=== PATIENT | male | born 1975 | race Caucasian/White ===

== ENCOUNTER 2017-02-19 01:37 | Emergency (ER) | payer MEDICAID ==
--- NOTE | 2017-02-19 02:16 | C.PDOC ---
History Of Present Illness patient states he feels anxious and has had some palpitations . He just had his thyroid medication increased from 50 to 75 mcg. Pt refuses to be examined or have blood work, because he feels better. wants to think about being examined Time Seen by Provider: 02/19/17 02:14 Chief Complaint (Nursing): Palpitations Past Medical History Vital Signs: Last Vital Signs Temp 97.8 F 02/19/17 01:52 Pulse 73 02/19/17 01:52 Resp 14 02/19/17 01:52 BP 115/36 L 02/19/17 01:52 Pulse Ox 100 02/19/17 02:16 - Medical History PMH: Anxiety, Back Problems, Depression, Hyperthyroidism, Hypothyroidism Denies: Diabetes, Hepatitis, HIV, HTN, Seizures, Sexually Transmitted Disease Family History: States: Unknown Family Hx - Social History Hx Tobacco Use: Yes Hx Alcohol Use: No Hx Substance Use: Yes - Immunization History Hx Tetanus Toxoid Vaccination: No Hx Influenza Vaccination: No Hx Pneumococcal Vaccination: No ED Course And Treatment ECG: Interpreted By Me, Viewed By Me ECG Rhythm: Sinus Rhythm, Nonspecific Changes O2 Sat by Pulse Oximetry: 100 Pulse Ox Interpretation: Normal Progress Note: went to see the patient , and see if he would allow me to examine him, but pt had eloped Disposition Counseled Patient/Family Regarding: Studies Performed, Diagnosis - Disposition Disposition: ELOPEMENT - ER ONLY Disposition Time: 02:15 Condition: UNKNOWN - Clinical Impression Clinical Impression: Palpitations
[2017-02-19 02:19] VITALS: BP 115/36; PULSE 73; RESP 14; TEMP 97.8; O2SAT 100
--- NOTE | 2017-02-24 13:32 | CARD ---
APPROVED REPORT EKG Measurement Heart [id number] <Conclusion> Accelerated Junctional rhythm Low voltage QRS Nonspecific T wave abnormality Abnormal ECG
== END 2017-02-19 01:56 | disposition left against medical advice (07) ==
LOC: C.ER 01:37
DX: R00.2 Palpitations (principal)

== ENCOUNTER 2017-03-09 13:30 | Emergency (ER) | payer MEDICAID ==
[2017-03-09 13:45] VITALS: BMI 22.4
--- NOTE | 2017-03-09 14:45 | C.PDOC ---
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 Patient states it was initially swollen, which went down. Taking Ibuprofen at home w/ transient relief. Pain worsens w movement. No numbness, tingling or weakness. Time Seen by Provider: 03/09/17 14:05 Chief Complaint (Nursing): Upper Extremity Problem/Injury History Per: Patient History/Exam Limitations: no limitations Onset/Duration Of Symptoms: Days Current Symptoms Are (Timing): Still Present Past Medical History Reviewed: Historical Data, Nursing Documentation, Vital Signs Vital Signs: Last Vital Signs Temp 97.4 F L 03/09/17 14:56 Pulse 60 03/09/17 14:56 Resp 16 03/09/17 14:56 BP 115/75 03/09/17 14:56 Pulse Ox 97 03/09/17 19:15 - Medical History PMH: Anxiety, Back Problems, Depression, Hyperthyroidism, Hypothyroidism Denies: Diabetes, Hepatitis, HIV, HTN, Seizures, Sexually Transmitted Disease Family History: States: Unknown Family Hx - Social History Hx Tobacco Use: Yes Hx Alcohol Use: No Hx Substance Use: Yes - Immunization History Hx Tetanus Toxoid Vaccination: No Hx Influenza Vaccination: No Hx Pneumococcal Vaccination: No Review Of Systems Except As Marked, All Systems Reviewed And Found Negative. Constitutional: Negative for: Fever, Chills Gastrointestinal: Negative for: Vomiting Musculoskeletal: Positive for: Arm Pain (left) Skin: Negative for: Rash Neurological: Negative for: Weakness, Numbness Physical Exam - Physical Exam Appears: Non-toxic, No Acute Distress Eye(s): bilateral: Normal Inspection, PERRL Extremity: Capillary Refill (<2 seconds), No Deformity, No Swelling, Other ( tenderness to palpation of left distal forearm along radius, from at wrist and elbow, radial pulses +2) Neurological/Psych: Oriented x3, Normal Speech, Normal Cognition ED Course And Treatment O2 Sat by Pulse Oximetry: 97 - Other Rad left forearm X-Ray: Interpreted by Me Interpretation: no fracture seen Disposition Counseled Patient/Family Regarding: Diagnosis, Need For Followup - Disposition Referrals: Arturo Leigh III, MD [Staff Provider] - Disposition: HOME/ ROUTINE Disposition Time: 14:42 Condition: STABLE Additional Instructions: Take Ibuprofen 600 mg by mouth every 6 hours (with food) for pain. Avoid strenuous use of left arm. Follow up with Orthopedics next week if pain persists. Forms: General Discharge Instructions, Work Excuse - Clinical Impression Clinical Impression: Tendonitis - Scribe Statement The provider has reviewed the documentation as recorded by the Toneibkirk Franks All medical record entries made by the Toneibkirk were at my direction and personally dictated by me. I have reviewed the chart and agree that the record accurately reflects my personal performance of the history, physical exam, medical decision making, and the department course for this patient. I have also personally directed, reviewed, and agree with the discharge instructions and disposition.
[2017-03-09 14:57] VITALS: BP 115/75; PULSE 60; RESP 16; TEMP 97.4
--- NOTE | 2017-03-09 14:57 | RAD ---
Left forearm History: Distal radial pain. Comparison: None. Findings: Two views of the left forearm demonstrate no evidence acute fracture or dislocation. Impression: No evidence of acute fracture or dislocation.
[2017-03-09 18:33] VITALS: O2SAT 97
== END 2017-03-09 14:57 | disposition home or self-care (01) ==
LOC: C.ER 13:30
DX: M77.9 Enthesopathy, unspecified (principal)

== ENCOUNTER 2017-04-09 23:11 | Emergency (ER) | payer MEDICAID ==
[2017-04-09 23:12] VITALS: BMI 22.4
[2017-04-09 23:42] VITALS: BP 107/71; PULSE 96; RESP 20; TEMP 97.4; O2SAT 97
--- NOTE | 2017-04-09 23:45 | C.PDOC ---
History Of Present Illness went to see the pt, but pt had eloped. Time Seen by Provider: 04/09/17 23:45 Chief Complaint (Nursing): Chest Pain Past Medical History Vital Signs: Last Vital Signs Temp 97.4 F L 04/09/17 23:37 Pulse 96 H 04/09/17 23:37 Resp 20 04/09/17 23:37 BP 107/71 04/09/17 23:37 Pulse Ox 97 04/09/17 23:45 - Medical History PMH: Anxiety, Back Problems, Depression, Hyperthyroidism, Hypothyroidism Denies: Diabetes, Hepatitis, HIV, HTN, Seizures, Sexually Transmitted Disease Family History: States: Unknown Family Hx - Social History Hx Tobacco Use: Yes Hx Alcohol Use: No Hx Substance Use: Yes - Immunization History Hx Tetanus Toxoid Vaccination: No Hx Influenza Vaccination: No Hx Pneumococcal Vaccination: No ED Course And Treatment ECG: Interpreted By Me, Viewed By Me ECG Rhythm: Sinus Rhythm (83), 1st Degree HB, Nonspecific Changes O2 Sat by Pulse Oximetry: 97 Pulse Ox Interpretation: Normal - Radiology CXR: Interpreted by Me, Viewed By Me CXR Interpretation: No: Infiltrates, Fracture, Pnemothorax Disposition Counseled Patient/Family Regarding: Studies Performed, Diagnosis - Disposition Disposition: LEFT W/O BEING SEEN - ER ONLY Disposition Time: 23:45 Condition: UNKNOWN - Clinical Impression Clinical Impression: Chest discomfort
== END 2017-04-09 23:45 | disposition left against medical advice (07) ==
LOC: C.ER 23:11
DX: Z02.89 Encounter for other administrative examinations (principal); R07.89 Other chest pain

== ENCOUNTER 2017-04-18 01:17 | Inpatient (IN) | payer MEDICAID ==
[2017-04-18 01:17] VITALS: BMI 22.4
--- NOTE | 2017-04-18 02:52 | C.PDOC ---
History Of Present Illness <Cristel Coates - Last Filed: 04/18/17 02:50> <SalvadorshinShell - Last Filed: 04/18/17 03:13> 41 y/o male with a Hx of thyroid disease, multiple drug abuse, and depression, presents to the ER expressing depression and suicidal ideation [employer]. Pt notes not taking his antidepressants 9 months ago. Pt has suicidal plan but denies any physical complaints at this time. (Shell Velazquez) <Cristel Coates - Last Filed: 04/18/17 02:50> History Per: Patient History/Exam Limitations: no limitations Onset/Duration Of Symptoms: Hrs Current Symptoms Are (Timing): Still Present Suicide/Self Injury Attempted (Context): None Severity: Mild Associated Symptoms: Suicidal Thoughts, Suicidal Plan Involuntary Hold By: None Recent travel outside of the [place]: No Additional History Per: Patient <CarolineShell - Last Filed: 04/18/17 03:13> Time Seen by Provider: 04/18/17 01:41 Chief Complaint (Nursing): Psychiatric Evaluation Past Medical History - Medical History PMH: Anxiety, Back Problems, Depression, Hyperthyroidism, Hypothyroidism Denies: Diabetes, Hepatitis, HIV, HTN, Seizures, Sexually Transmitted Disease Family History: States: Unknown Family Hx - Social History Hx Tobacco Use: Yes Hx Alcohol Use: No Hx Substance Use: Yes - Immunization History Hx Tetanus Toxoid Vaccination: No Hx Influenza Vaccination: No Hx Pneumococcal Vaccination: No <Cristel Coates - Last Filed: 04/18/17 02:50> Reviewed: Historical Data, Nursing Documentation, Vital Signs - Medical History PMH: Anxiety, Back Problems, Depression, Hyperthyroidism, Hypothyroidism Family History: States: Unknown Family Hx - Social History Hx Tobacco Use: Yes Hx Alcohol Use: No Hx Substance Use: Yes - Immunization History Hx Tetanus Toxoid Vaccination: No Hx Influenza Vaccination: No Hx Pneumococcal Vaccination: No <CarolineShell - Last Filed: 04/18/17 03:13> Vital Signs: Last Vital Signs Temp 97.6 F 04/18/17 01:28 Pulse 80 04/18/17 01:28 Resp 14 04/18/17 01:28 BP 120/70 04/18/17 01:28 Pulse Ox 97 04/18/17 02:51 ED Course And Treatment ECG: Interpreted By Me, Viewed By Me ECG Rhythm: Sinus Rhythm (60), 1st Degree HB, Nonspecific Changes O2 Sat by Pulse Oximetry: 97 Pulse Ox Interpretation: Normal <Cristel Coates - Last Filed: 04/18/17 02:50>
[2017-04-18 03:14] LABS: BASO # 0.1 K/uL (0.0-0.2); BASO % 0.9 % (0.0-2.0); EOS # 0.2 K/uL (0.0-0.7); EOS % 2.5 % (0.0-4.0); HEMATOCRIT 39.2 % (35.0-51.0); LYMPH # 1.9 K/uL (1.0-4.3); LYMPH % 20.6 % (20.0-40.0); MEAN CELL VOLUME 93.5 fL (80.0-94.0); MEAN CORPUSCULAR HGB CONC 34.3 g/dL (33.0-37.0); MEAN PLATELET VOLUME 7.4 fL (7.2-11.7); MONO # 0.9 K/uL (0.0-0.8); MONO % 9.3 % (0.0-10.0); NRBC % 0.1 % (0.0-2.0); RED CELL DISTRIBUTION WIDTH 12.9 % (11.5-14.5); WHITE BLOOD COUNT 9.4 K/uL (4.8-10.8)
--- NOTE | 2017-04-18 03:18 | C.PDOC ---
History Of Present Illness <Shell Velazquez - Last Filed: 04/18/17 06:56> <Marielle Barnard - Last Filed: 04/18/17 07:35> 41 y/o male with a Hx of thyroid disease, multiple drug abuse, and depression, presents to the ER expressing depression with suicidal ideation gradually developed for past week. Pt notes not taking his antidepressants and thyroid medication " at least for 9 months ago". Pt has suicidal plan. Admits many stressor, drug abuse that worse depression sx. At present time, pt appears AAO#3 , appropriate, denies any active physical complaints at this time. (Shell Velazquez) History Per: Patient History/Exam Limitations: no limitations Onset/Duration Of Symptoms: Hrs Current Symptoms Are (Timing): Still Present Suicide/Self Injury Attempted (Context): None Severity: Mild Associated Symptoms: Suicidal Thoughts, Suicidal Plan Involuntary Hold By: None Recent travel outside of the [place]: No Additional History Per: Patient <Shell Velazquez - Last Filed: 04/18/17 06:56> <Marielle Barnard - Last Filed: 04/18/17 07:35> Time Seen by Provider: 04/18/17 01:41 Chief Complaint (Nursing): Psychiatric Evaluation Past Medical History Reviewed: Historical Data, Nursing Documentation, Vital Signs - Medical History PMH: Anxiety, Back Problems, Depression, Hyperthyroidism, Hypothyroidism Denies: Diabetes, Hepatitis, HIV, HTN, Seizures, Sexually Transmitted Disease Family History: States: Unknown Family Hx - Social History Hx Tobacco Use: Yes Hx Alcohol Use: No Hx Substance Use: Yes - Immunization History Hx Tetanus Toxoid Vaccination: No Hx Influenza Vaccination: No Hx Pneumococcal Vaccination: No <Shell Velazquez - Last Filed: 04/18/17 06:56> Review Of Systems Except As Marked, All Systems Reviewed And Found Negative. Psych: Positive for: Depression, Suicidal ideation <Shell Velazquez - Last Filed: 04/18/17 06:56> Physical Exam - Physical Exam Appears: Non-toxic, No Acute Distress Skin: Warm, Dry Head: Atraumatic, Normacephalic Eye(s): bilateral: PERRL Nose: No Discharge Oral Mucosa: Moist, No Drooling Tongue: Normal Appearing Lips: Normal Appearing Throat: Normal Neck: Supple Chest: Symmetrical Cardiovascular: Rhythm Regular, No Friction Rub, No JVD Respiratory: No Rales, No Rhonchi, No Stridor, No Wheezing Gastrointestinal/Abdominal: Soft, No Tenderness, No Distention, No Guarding Back: No CVA Tenderness Extremity: Normal ROM, No Pedal Edema Neurological/Psych: Oriented x3, Normal Speech, Other (No focal deficit) Gait: Steady <Shell Velazquez - Last Filed: 04/18/17 06:56> ED Course And Treatment - Laboratory Results Result Diagrams: 04/18/17 03:09 04/18/17 03:09 ECG: Interpreted By Me, Viewed By Me ECG Rhythm: Sinus Rhythm ECG Interpretation: Normal Interpretation Of ECG: SR@60/min, NAD, 1st degree AVB, no acute T wave or ST-T changes. O2 Sat by Pulse Oximetry: 97 (RA) Pulse Ox Interpretation: Normal - Radiology CXR: Interpreted by Me, Viewed By Me CXR Interpretation: Yes: Cardiomegaly. No: Infiltrates Progress Note: Impression: 41 y/o male c/o depression and suicidal ideation today. Plans: EKG, Blood labs, CXR. Pt was OBS in ED for 5 hours. Diagnostics review, appears noraml except TSH- hyperthyroidism. Pt has Hx of hypothyroidism, non-compliant with medictaion. UA sample still pending. At 6: 30, UDS review (+) opiates. PT IS MEDICALLY CLEARED FOR PES EVALUATION AND FURTHER PSYCHIATRIC EVALUATION/TREATMENT/TRANSFER NEED. <Shell Velazquez - Last Filed: 04/18/17 06:56> - Laboratory Results Result Diagrams: 04/18/17 03:09 04/18/17 03:09 <Marielle Barnard - Last Filed: 04/18/17 07:35> Medical Decision Making <Shell Velazquez - Last Filed: 04/18/17 06:56> <Marielle Barnard - Last Filed: 04/18/17 07:35> Medical Decision Making: Receiving Sign Out 07:00 Patient signed out to me by Shell Velazquez (DARSHAN). Pending disposition 07:20 Case discussed w/ addiction social worker, Senait; States that patient is being admitted to under Dr Armendariz's service for depression. (Marielle Barnard) Disposition - Disposition Disposition Time: 07:00 <Shell Velazquez - Last Filed: 04/18/17 06:56> <Marielle Barnard - Last Filed: 04/18/17 07:35> - Disposition Condition: STABLE - Clinical Impression Clinical Impression: Depression - Scribe Statement The provider has reviewed the documentation as recorded by the Scribe <Shell Velazquez - Last Filed: 04/18/17 06:56> <Marielle Barnard - Last Filed: 04/18/17 07:35> - Scribe Statement José Miguel eastman All medical record entries made by the Scribe were at my direction and personally dictated by me. I have reviewed the chart and agree that the record accurately reflects my personal performance of the history, physical exam, medical decision making, and the department course for this patient. I have also personally directed, reviewed, and agree with the discharge instructions and disposition. (Shell Velazquez)
[2017-04-18 03:23] LABS: CHLORIDE 100 mmol/L (98-107); SODIUM 140 mmol/L (132-148)
[2017-04-18 03:24] LABS: POTASSIUM 3.6 mmol/L (3.6-5.2)
[2017-04-18 03:25] LABS: GFR AFRICAN-AMERICAN > 60
[2017-04-18 03:26] LABS: ALB/GLOB RATIO 1.3 (1.0-2.1); ALKALINE PHOSPHATASE 60 U/L (38-126); ALT/SGPT 19 U/L (21-72); AST/SGOT 32 U/L (17-59); BILIRUBIN,TOTAL 0.7 mg/dL (0.2-1.3); BLOOD UREA NITROGEN 14 mg/dL (9-20); CALCIUM 8.9 mg/dl (8.6-10.4); CARBON DIOXIDE 27 mmol/L (22-30); GLUCOSE,RANDOM 84 mg/dL (75-110); TOTAL PROTEIN 7.7 g/dL (6.3-8.3)
[2017-04-18 03:27] LABS: ALCOHOL SERUM < 10 mg/dl (0-10)
[2017-04-18 06:54] LABS: URINE BILIRUBIN NEGATIVE (NEGATIVE); URINE BLOOD NEGATIVE (NEGATIVE); URINE COLOR Yellow (YELLOW); URINE GLUCOSE (UA) NORMAL (Normal); URINE KETONE NEGATIVE (NEGATIVE); URINE LEUKOCYTE ESTERASE NEG Leu/uL (Negative); URINE PROTEIN NEGATIVE (NEGATIVE); URINE UROBILINOGEN NORMAL mg/dL (0.2-1.0); WBC URINE < 1 /hpf (0-5)
[2017-04-18 07:07] VITALS: RESP 18
[2017-04-18 09:08] VITALS: O2SAT 99
--- NOTE | 2017-04-18 11:01 | RAD ---
HISTORY: Screening. Portable study 03:05. COMPARISON: 01/10/2015. FINDINGS: LUNGS: No active pulmonary disease. PLEURA: No significant pleural effusion identified, no pneumothorax apparent. CARDIOVASCULAR: Normal. OSSEOUS STRUCTURES: No significant abnormalities. VISUALIZED UPPER ABDOMEN: Normal. OTHER FINDINGS: None. IMPRESSION: No active disease. No significant interval change compared to the prior examination(s).
--- NOTE | 2017-04-19 09:56 | PCM.PSYCH ---
Initial Psychiatric Evaluation - Initial Psychiatric Evaluation Type of Admission: Voluntary Legal Status: Capacity History of Present Illness and Precipitating Events: This is a 41 years old male who currently lives with his friend, and currently unemployed was admitted yesterday because of depressed mood, auditory hallucinations, opiate abuse and suicidal ideation with plan to overdose. Patient reports a long history of abusing heroin. Patient denies any past history of any inpatient psychiatric hospitalizations and denies any follow-up with any psychiatrist. As per the patient since last month he is abusing 10-30 bags of heroin on a daily basis. Day before yesterday he sniffed almost 10 bags of heroin, became increasingly depressed and developed suicidal ideation so he came to the hospital. Patient reports of increasingly depressed mood, at times feelings of hopelessness and helplessness, poor sleep and poor appetite. He also reports at times irritability, and agitation. Patient reports auditory hallucinations, telling him to end it all and to kill himself. Patient reports of persecutory delusions that someone is following him, however he denies any visual hallucinations. Patient reports withdrawal symptoms from heroin including hot and cold sweats, abdominal cramps, anxiety, headaches and nausea. He denies drinking or any other substance abuse. Medical history None reported Current Medications: Active Medications Generic Name Dose Route Start Last Admin Trade Name Freq PRN Reason Stop Dose Admin Hydroxyzine HCl 25 mg 04/18/17 16:46 04/18/17 17:10 Atarax PO 25 mg Q6H PRN Administration Anxiety Lorazepam 1 mg 04/18/17 22:06 04/18/17 22:12 Ativan PO 1 mg Q6H PRN Administration severe anxiety Trazodone HCl 50 mg 04/18/17 22:06 04/18/17 22:12 Desyrel PO 50 mg HS PRN Administration Insomnia Past Psychiatric History - Past Psychiatric History Previous Treatment History: None Pertinent Medical Hx (Current Medical&Sleep Prob, Allergies): Allergies Allergy/AdvReac Type Severity Reaction Status Date / Time No Known Allergies Allergy Verified 04/18/17 01:38 Levothyroxine Sodium [Levothyroxine] 75 mcg PO DAILY 03/09/17 Review of Systems - Review of Systems All systems: reviewed and no additional remarkable complaints except - Psychiatric Psychiatric: Anxiety, Depression, Irritability, Suicidal Ideation Mental Status Examination - Personal Presentation Personal Presentation: Looks stated age - Affect Affect: Constricted, Depressed - Motor Activity Motor Activity: Calm - Reliability in Providing Information Reliability in Providing Information: Good - Speech Speech: Organized - Mood Mood: Depressed, Anxious - Formal Thought Process Formal Thought Process: Hallucinations, Paranoia, Loosening of associations - Hallucinations/Delusions Hallucinations: Auditory Delusions: Persecution - Obsessions/Compulsions Obsessions: No Compulsions: No - Cognitive Functions Orientation: Person, Place, Situation, Time Sensorium: Alert Attention/Concentration: Attentive Abstract Thinking: Alden Estimate of Intelligence: Below average Judgement: Imparied, as evidence by: Poor judgement, Imparied, as evidence by: Lack of insight into illness - Risk Risk: Suicidal, Withdrawal, Diminished functioning - Strength & Assets Inventory Strength & Assets Inventory: Life experience - Limitations Limitations: Living alone DSM 5 DX - DSM 5 DSM 5 Diagnosis: Major depressive disorder recurrent severe with psychotic features Opioid use disorder severe Opioid withdrawal - Recommended/Plan of Treatment Treatment Recommendations and Plan of Treatment: Major depressive disorder recurrent severe with psychotic features CBT Psychoeducation Supportive therapy, group therapy, individual therapy Zoloft 50 mg by mouth daily Haldol 5 mg by mouth daily at bedtime Cogentin 1 mg by mouth daily at bedtime Trazodone 50 mg by mouth daily at bedtime Opioid use disorder severe CBT Psychoeducation Supportive therapy, individual therapy Use SC for abstinence Opioid withdrawal CBT Psychoeducation Supportive therapy, individual therapy Clonidine when necessary Methadone taper - Smoking Cessation Smoking Cessation Initiated: No
[2017-04-19] MEDS ORDERED: Levothyroxine 50 MCG TAB PO STA (20:07)
--- NOTE | 2017-04-20 02:00 | CARD ---
APPROVED REPORT EKG Measurement Heart [id number] <Conclusion> Sinus rhythm with 1st degree AV block Otherwise normal ECG
[2017-04-20] MEDS ORDERED: Levothyroxine 50 MCG TAB PO SCH (06:30)
[2017-04-20 11:08] VITALS: BP 116/73; PULSE 72; TEMP 97.7
--- NOTE | 2017-04-20 11:54 | PCM.PYCHDC ---
Mental Status Examination - Mental Status Examination Orientation: Person, Place, Situation, Time Memory: Intact Mood: Neutral Affect: Constricted Speech: Soft Attention: WNL Concentration: WNL Association: WNL Fund of Knowledge: WNL Formal Thought Process: No Impairment Description of patient's judgement and insight: partially impaired Psychotic Thoughts and Behaviors: Denies any AVH Suicidal Ideation: No Current Homicidal Ideation?: No Discharge Summary - Discharge Note Reason for Hospitalization: This is a 41 years old male who currently lives with his friend, and currently unemployed was admitted yesterday because of depressed mood, auditory hallucinations, opiate abuse and suicidal ideation with plan to overdose. Patient reports a long history of abusing heroin. Patient denies any past history of any inpatient psychiatric hospitalizations and denies any follow-up with any psychiatrist. As per the patient since last month he is abusing 10-30 bags of heroin on a daily basis. Day before yesterday he sniffed almost 10 bags of heroin, became increasingly depressed and developed suicidal ideation so he came to the hospital. Patient reports of increasingly depressed mood, at times feelings of hopelessness and helplessness, poor sleep and poor appetite. He also reports at times irritability, and agitation. Patient reports auditory hallucinations, telling him to end it all and to kill himself. Patient reports of persecutory delusions that someone is following him, however he denies any visual hallucinations. Patient reports withdrawal symptoms from heroin including hot and cold sweats, abdominal cramps, anxiety, headaches and nausea. He denies drinking or any other substance abuse. Consultations:: List each consultation separately and include: 1. Reason for request. 2. Findings. 3. Follow-up Summary of Hospital Course include:: 1. Description of specific treatment plan utilized for patients during their course of treatmen. 2. Summarize the time- course for resolution of acute symptoms and/or regressed behaviors. 3. Describe issues identified and worked on during hospitalization. 4. Describe medication utilized. 5. Describe medical problems identified and treated. 6. Reassessment of suicide risk Summary of Hospital Course: During the course of his stay, patient (pt) started progressively improving and he no longer remained irritable, depressed, suicidal and paranoid. His mood and paranoia were improved and he started attending groups and meetings and started socializing. Today patient demanded to be discharged AMA. He mentioned that he is doing better, and he no longer have any withdrawal symptoms. Patient denied any feelings of hopelessness, helplessness, and worthlessness, denied any problem with the sleep or appetite, denied suicidal ideation or homicidal ideation. Pt denied any auditory or visual hallucinations. - Final Diagnosis (DSM 5) Condition upon Discharge: STABLE DSM 5: Major depressive disorder recurrent severe with psychotic features Opioid use disorder severe Opioid withdrawal Disposition: AGAINST MEDICAL ADVICE Follow-up Treatment Plan: Education: Pt was educated and counseled about the risks and benefits of taking and not taking medications. Pt was educated and counseled about the risks of drinking and abusing drugs. Pt was educated and counseled to go to the ER or call 911 if pt develop suicidal ideation or homicidal ideation, worsening of symptoms or severe side effects of the meds. - Smoking Cessation Smoking Cessation Medication prescribed: No - Antipsychotic Medications Pt discharged on 2 or more routine antipsychotic medications: No
== END 2017-04-20 11:00 | disposition left against medical advice (07) | DRG 430 ==
LOC: C.ER 01:17 → C.9E 08:25 → C.5E 08:53
PROC: HZ2ZZZZ Detoxification Services for Substance Abuse Treatment (ICD-10-PCS; principal; 2017-04-18)
PROC: GZHZZZZ Group Psychotherapy (ICD-10-PCS; 2017-04-18)
PROC: HZ52ZZZ Individual Psychotherapy for Substance Abuse Treatment, Cognitive-Behavioral (ICD-10-PCS; 2017-04-18)
PROC: HZ59ZZZ Individual Psychotherapy for Substance Abuse Treatment, Supportive (ICD-10-PCS; 2017-04-18)
PROC: HZ56ZZZ Individual Psychotherapy for Substance Abuse Treatment, Psychoeducation (ICD-10-PCS; 2017-04-18)
DX: F33.3 Major depressive disorder, recurrent, severe with psychotic symptoms (principal); R45.851 Suicidal ideations; Z91.14 Patient's other noncompliance with medication regimen; F11.23 Opioid dependence with withdrawal; E05.90 Thyrotoxicosis, unspecified without thyrotoxic crisis or storm; F41.9 Anxiety disorder, unspecified; E03.9 Hypothyroidism, unspecified; F17.210 Nicotine dependence, cigarettes, uncomplicated

== ENCOUNTER 2017-05-13 23:52 | Inpatient (IN) | payer MEDICAID ==
[2017-05-13 23:52] VITALS: BMI 22.4
--- NOTE | 2017-05-14 00:29 | C.PDOC ---
History Of Present Illness <Mir Bartlett - Last Filed: 05/14/17 07:02> <Audra Stovall - Last Filed: 05/14/17 11:34> Patient gave a history of wanting to " end it all". Patient has suicidal ideation for 3 weeks.Has suicidal plan. also take heroin, last use last few hours ago. (Mir Bartlett) History Per: Patient History/Exam Limitations: no limitations Onset/Duration Of Symptoms: Days Current Symptoms Are (Timing): Still Present Suicide/Self Injury Attempted (Context): None Modifying Factor(s): Narcotics Severity: Moderate Pain Scale Rating Of: 0 Associated Symptoms: Suicidal Thoughts, Suicidal Plan Involuntary Hold By: None Recent travel outside of the [place]: No Additional History Per: Patient <Mir Bartlett - Last Filed: 05/14/17 07:02> <Audra Stovall - Last Filed: 05/14/17 11:34> Chief Complaint (Nursing): Psychiatric Evaluation Past Medical History - Medical History PMH: Anxiety, Back Problems, Depression, Hyperthyroidism, Hypothyroidism Denies: Diabetes, Hepatitis, HIV, HTN, Chronic Kidney Disease, Seizures, Sexually Transmitted Disease Surgical History: No Surg Hx Family History: States: Unknown Family Hx - Social History Hx Tobacco Use: Yes Hx Alcohol Use: Yes Hx Substance Use: Yes - Immunization History Hx Tetanus Toxoid Vaccination: No Hx Influenza Vaccination: No Hx Pneumococcal Vaccination: No <Mir Bartlett - Last Filed: 05/14/17 07:02> Review Of Systems Constitutional: Negative for: Fever, Chills, Sweats Eyes: Negative for: Pain ENT: Negative for: Ear Pain, Ear Discharge, Nose Pain, Nose Discharge Cardiovascular: Negative for: Chest Pain, Palpitations Respiratory: Negative for: Cough, Shortness of Breath, Hemoptysis Gastrointestinal: Negative for: Nausea, Vomiting, Abdominal Pain, Diarrhea Genitourinary: Negative for: Dysuria Musculoskeletal: Negative for: Neck Pain, Shoulder Pain, Arm Pain Skin: Negative for: Rash, Lesions Neurological: Negative for: Weakness, Numbness, Change in Speech Psych: Positive for: Anxiety, Depression, Suicidal ideation <Mir Bartlett - Last Filed: 05/14/17 07:02> Physical Exam - Physical Exam Appears: Well, Non-toxic, No Acute Distress Skin: Normal Color, Warm, Dry Eye(s): bilateral: Normal Inspection, PERRL, EOMI Nose: Normal Throat: Normal Neck: Normal Chest: Symmetrical, No Deformity, No Tenderness Cardiovascular: Rhythm Regular, No Edema, No Murmur, No JVD Respiratory: Normal Breath Sounds Gastrointestinal/Abdominal: Normal Exam Back: Normal Inspection Extremity: Normal ROM Neurological/Psych: Oriented x3, Normal Speech, Normal Cognition, Normal Motor, Normal Sensation Gait: Steady <DhruvSanjuanaMir Tati Simental Last Filed: 05/14/17 07:02> ED Course And Treatment - Laboratory Results Result Diagrams: 05/14/17 00:37 05/14/17 00:37 O2 Sat by Pulse Oximetry: 99 <DhruvMir - Last Filed: 05/14/17 07:02> - Laboratory Results Result Diagrams: 05/14/17 00:37 05/14/17 00:37 <WilmanAudra - Last Filed: 05/14/17 11:34> Disposition - Disposition Disposition Time: 07:00 <Mir Bartlett Tati - Last Filed: 05/14/17 07:02> Discussed With : Carley Calhoun Counseled Patient/Family Regarding: Studies Performed, Diagnosis - Disposition Disposition Time: 11:33 - POA Present On Arrival: None <Audra Stovall - Last Filed: 05/14/17 11:34> - Disposition Disposition: HOSPITALIZED Condition: STABLE - Clinical Impression Clinical Impression: Depression, Opiate abuse, continuous Decision To Admit <BartlettMir Last Filed: 05/14/17 07:02> - Pt Status Changed To: Hospital Disposition Of: Inpatient - Admit Certification Admit to Inpatient:: After my assessment, the patient will require hospitalization for at least two midnights. This is because of the severity of symptoms shown, intensity of services needed, and/or the medical risk in this patient being treated as an outpatient. - InPatient: Physician Admission Certification: I certify that this patient requires 2 or more midnights of care for the following reason:: SEE NOTE - . Bed Request Type: Psychiatry Admitting Physician: Carley Calhoun <WilmanAudra - Last Filed: 05/14/17 11:34> - . Patient Diagnosis: Depression, Opiate abuse, continuous
[2017-05-14 00:41] LABS: BASO # 0.1 K/uL (0.0-0.2); BASO % 0.8 % (0.0-2.0); EOS # 0.4 K/uL (0.0-0.7); EOS % 3.5 % (0.0-4.0); HEMATOCRIT 39.5 % (35.0-51.0); LYMPH # 1.6 K/uL (1.0-4.3); LYMPH % 14.8 % (20.0-40.0); MEAN CORPUSCULAR HEMOGLOBIN 31.5 pg (27.0-31.0); MEAN CORPUSCULAR HGB CONC 33.9 g/dL (33.0-37.0); MEAN PLATELET VOLUME 7.4 fL (7.2-11.7); MONO # 0.7 K/uL (0.0-0.8); MONO % 6.8 % (0.0-10.0); WHITE BLOOD COUNT 10.7 K/uL (4.8-10.8)
[2017-05-14 01:01] LABS: CHLORIDE 100 mmol/L (98-107); POTASSIUM 3.3 mmol/L (3.6-5.2); SODIUM 139 mmol/L (132-148)
[2017-05-14 01:04] LABS: ALB/GLOB RATIO 1.4 (1.0-2.1); ALKALINE PHOSPHATASE 79 U/L (38-126); ALT/SGPT 34 U/L (21-72); AST/SGOT 38 U/L (17-59); BILIRUBIN,TOTAL 0.7 mg/dL (0.2-1.3); BLOOD UREA NITROGEN 19 mg/dL (9-20); CALCIUM 8.9 mg/dl (8.6-10.4); CARBON DIOXIDE 27 mmol/L (22-30); GFR AFRICAN-AMERICAN > 60; GLUCOSE,RANDOM 108 mg/dL (75-110); TOTAL PROTEIN 7.5 g/dL (6.3-8.3)
[2017-05-14 01:27] LABS: ALCOHOL SERUM < 10 mg/dl (0-10)
[2017-05-14 02:32] LABS: URINE BILIRUBIN NEGATIVE (NEGATIVE); URINE BLOOD NEGATIVE (NEGATIVE); URINE COLOR Yellow (YELLOW); URINE GLUCOSE (UA) NORMAL (Normal); URINE KETONE NEGATIVE (NEGATIVE); URINE LEUKOCYTE ESTERASE NEG Leu/uL (Negative); URINE PROTEIN NEGATIVE (NEGATIVE); URINE UROBILINOGEN NORMAL mg/dL (0.2-1.0); WBC URINE < 1 /hpf (0-5)
[2017-05-14 14:39] VITALS: TEMP 97.9
[2017-05-15 05:27] VITALS: O2SAT 99
[2017-05-15] MEDS ORDERED: Levothyroxine 75 MCG TAB PO SCH (06:30)
[2017-05-15] MEDS ORDERED: Potassium Chloride 20 mEq ER Tab PO ONE (15:49)
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
[2017-05-16] MEDS ORDERED: Levothyroxine 100 MCG TAB PO SCH (06:30)
[2017-05-16 10:10] VITALS: BP 131/77; PULSE 80; RESP 20
--- NOTE | 2017-05-16 14:17 | PCM.PYCHDC ---
Mental Status Examination - Mental Status Examination Orientation: Person, Place, Situation, Time Discharge Summary - Discharge Note Laboratory Data: Abnormal Lab Results 05/15/17 17:14 TSH 3rd Generation 15.80 H Consultations:: List each consultation separately and include: 1. Reason for request. 2. Findings. 3. Follow-up Summary of Hospital Course include:: 1. Description of specific treatment plan utilized for patients during their course of treatmen. 2. Summarize the time- course for resolution of acute symptoms and/or regressed behaviors. 3. Describe issues identified and worked on during hospitalization. 4. Describe medication utilized. 5. Describe medical problems identified and treated. 6. Reassessment of suicide risk - Final Diagnosis (DSM 5) Condition upon Discharge: STABLE Disposition: AGAINST MEDICAL ADVICE
== END 2017-05-16 12:45 | disposition left against medical advice (07) | DRG 430 ==
LOC: SUPCPDRO 23:52 → C.ER 23:52 → C.9OBSV 05-14 04:56 → OBSVTOIN 05-14 11:34 → INTOOBSV 05-14 11:34 → C.9E 05-14 12:02 → C.5E 05-14 14:55
PROVIDERS: ADMIT Emergency Medicine; ATTEND Psychiatry & Neurology Psychiatry
DX: F33.2 Major depressive disorder, recurrent severe without psychotic features (principal); F11.23 Opioid dependence with withdrawal; E03.9 Hypothyroidism, unspecified

== ENCOUNTER 2017-06-12 18:17 | Emergency (ER) | payer MEDICAID ==
[2017-06-12 18:17] VITALS: BMI 22.4
[2017-06-12 18:24] VITALS: PULSE 75; TEMP 97.9; O2SAT 100
[2017-06-12] MEDS ORDERED: Bacitracin 500 Units/gm Oint Foilpak UD TOP ONE (18:39)
[2017-06-12 18:58] LABS: BASO # 0.1 K/uL (0.0-0.2); BASO % 0.7 % (0.0-2.0); EOS # 0.2 K/uL (0.0-0.7); EOS % 2.7 % (0.0-4.0); HEMATOCRIT 41.2 % (35.0-51.0); LYMPH # 1.8 K/uL (1.0-4.3); LYMPH % 24.9 % (20.0-40.0); MEAN CORPUSCULAR HEMOGLOBIN 31.6 pg (27.0-31.0); MEAN CORPUSCULAR HGB CONC 34.8 g/dL (33.0-37.0); MEAN PLATELET VOLUME 7.5 fL (7.2-11.7); MONO # 0.5 K/uL (0.0-0.8); MONO % 7.2 % (0.0-10.0); RED CELL DISTRIBUTION WIDTH 12.5 % (11.5-14.5); WHITE BLOOD COUNT 7.4 K/uL (4.8-10.8)
[2017-06-12 19:06] LABS: CHLORIDE 96 mmol/L (98-107); SODIUM 141 mmol/L (132-148)
[2017-06-12 19:07] LABS: POTASSIUM 3.7 mmol/L (3.6-5.2)
[2017-06-12 19:09] LABS: ALB/GLOB RATIO 1.3 (1.0-2.1); ALKALINE PHOSPHATASE 80 U/L (38-126); ALT/SGPT 36 U/L (21-72); AST/SGOT 44 U/L (17-59); BILIRUBIN,TOTAL 0.7 mg/dL (0.2-1.3); BLOOD UREA NITROGEN 12 mg/dL (9-20); CALCIUM 9.6 mg/dl (8.6-10.4); CARBON DIOXIDE 30 mmol/L (22-30); GFR AFRICAN-AMERICAN > 60; GLUCOSE,RANDOM 84 mg/dL (75-110); TOTAL PROTEIN 8.6 g/dL (6.3-8.3)
[2017-06-12 19:10] LABS: ALCOHOL SERUM < 10 mg/dl (0-10)
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
[2017-06-12 20:58] LABS: RBC URINE 1 /hpf (0-3); URINE BILIRUBIN NEGATIVE (NEGATIVE); URINE BLOOD NEGATIVE (NEGATIVE); URINE COLOR Yellow (YELLOW); URINE GLUCOSE (UA) NORMAL (Normal); URINE KETONE NEGATIVE (NEGATIVE); URINE LEUKOCYTE ESTERASE NEG Leu/uL (Negative); URINE PROTEIN NEGATIVE (NEGATIVE); URINE UROBILINOGEN NORMAL mg/dL (0.2-1.0); WBC URINE 1 /hpf (0-5)
[2017-06-12 22:39] VITALS: BP 135/80; RESP 18
== END 2017-06-12 22:38 | disposition home or self-care (01) ==
LOC: C.ER 18:17
DX: F11.10 Opioid abuse, uncomplicated (principal); F32.89 Other specified depressive episodes

== ENCOUNTER 2017-06-18 02:03 | Emergency (ER) | payer MEDICAID ==
[2017-06-18 02:04] VITALS: BMI 22.4
[2017-06-18 02:11] VITALS: BP 123/70; PULSE 79; RESP 18; TEMP 97.5; O2SAT 98
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
== END 2017-06-18 02:47 | disposition home or self-care (01) ==
LOC: C.ER 02:03
DX: L25.4 Unspecified contact dermatitis due to food in contact with skin (principal)

== ENCOUNTER 2017-07-21 14:00 | Emergency (ER) | payer MEDICAID ==
[2017-07-21 14:00] VITALS: BMI 22.4
[2017-07-21 14:36] VITALS: BP 112/72; PULSE 90; RESP 20; TEMP 98.3; O2SAT 97
--- NOTE | 2017-07-21 15:01 | C.PDOC ---
History Of Present Illness 42 yo male come in request psych evaluation and clearance prior to rehab tx for opioid dependance. Pt appears comfortable, cooperative, not in any apparent distress. Pt denies any active somatic complaints. Ambulate to Ed for evaluation , not in any apparent distress. Pt denies suicidal and homocidal ideation. Time Seen by Provider: 07/21/17 14:17 Chief Complaint (Nursing): Psychiatric Evaluation History Per: Patient Past Medical History Reviewed: Historical Data, Nursing Documentation, Vital Signs Vital Signs: Last Vital Signs Temp 98.3 F 07/21/17 14:27 Pulse 90 07/21/17 14:27 Resp 20 07/21/17 14:27 BP 112/72 07/21/17 14:27 Pulse Ox 97 07/21/17 15:06 - Medical History PMH: Anxiety, Back Problems, Depression, Hypothyroidism Denies: Diabetes, Hepatitis, HIV (Patient denied), HTN (Patient denied), Chronic Kidney Disease, Seizures (Patient denied), Sexually Transmitted Disease (Patient denied) Other Surgeries: not contributory - [facility] Procedures DETOXIFICATION SERVICES FOR SUBSTANCE ABUSE TREATMENT (04/18/17) GROUP PSYCHOTHERAPY (04/18/17) INDIV PSYCHOTHERAPY FOR SUBSTANCE ABUSE TREATMENT, SUPPORT (04/18/17) INDIV PSYCHOTHERAPY FOR SUBSTANCE ABUSE, COGNITIV BEHAVIORAL (04/18/17) INDIV PSYCHOTHERAPY FOR SUBSTANCE ABUSE, PSYCHOEDUCATION (04/18/17) Family History: States: No Known Family Hx - Social History Hx Tobacco Use: Yes Hx Alcohol Use: No Hx Substance Use: Yes (Snorts Heroin) - Immunization History Hx Tetanus Toxoid Vaccination: Yes (about 5 years ago) Hx Influenza Vaccination: No Hx Pneumococcal Vaccination: No Review Of Systems Except As Marked, All Systems Reviewed And Found Negative. Constitutional: Negative for: Fever, Chills Eyes: Negative for: Vision Change ENT: Negative for: Throat Pain Cardiovascular: Negative for: Chest Pain, Edema, Light Headedness Respiratory: Negative for: Cough, Shortness of Breath, Wheezing Gastrointestinal: Negative for: Nausea, Vomiting, Abdominal Pain Genitourinary: Negative for: Dysuria, Frequency, Incontinence Musculoskeletal: Negative for: Neck Pain, Back Pain Skin: Negative for: Rash Neurological: Negative for: Weakness, Numbness, Altered Mental Status, Headache , Dizziness Physical Exam - Physical Exam Appears: Well, Non-toxic, No Acute Distress Skin: Normal Color, Warm, Dry, No Rash Head: Atraumatic, Normacephalic Eye(s): bilateral: PERRL Ear(s): Bilateral: Normal Nose: No Flaring Throat: No Drooling Neck: Normal ROM, Supple Cardiovascular: Rhythm Regular Respiratory: No Decreased Breath Sounds, No Accessory Muscle Use, No Stridor, No Wheezing Gastrointestinal/Abdominal: Soft, No Tenderness, No Distention, No Guarding Back: No CVA Tenderness Extremity: Normal ROM, No Pedal Edema Neurological/Psych: Oriented x3, Normal Speech ED Course And Treatment O2 Sat by Pulse Oximetry: 97 Pulse Ox Interpretation: Normal Progress Note: On re-eavuation, pt is afebrile, hemodynamicaly stable. non- toxic. neck: Supple, (-) JVD, (-) carotid bruits. ENT: no acute findings. Lungs: CTA B/L, BS equal B/L. CVS: (+)S1S2, reg. Abd: benign. Neurologicaly intact. Pt was seen and evaluated by contact worker, pt was cleared for discharge and outpt follow up, rehab program. Pt advised. ref. to f/u with Psych in 2-3 days for re-eavl. return to ED if any worsening or new changes. Disposition Counseled Patient/Family Regarding: Diagnosis, Need For Followup - Disposition Referrals: [facility] [Outside] Disposition: HOME/ ROUTINE Disposition Time: 16:01 Condition: STABLE Additional Instructions: Follow up with Psychiatrist outpatient as instructed for further evaluation as need return if any new changes. Instructions: Depression (ED) Forms: [employer] (Puerto Rican) - Clinical Impression Clinical Impression: Depression
== END 2017-07-21 17:42 | disposition home or self-care (01) ==
LOC: C.ER 14:00
DX: F32.9 Major depressive disorder, single episode, unspecified (principal)

== ENCOUNTER 2017-07-24 03:26 | Emergency (ER) | payer MEDICAID ==
[2017-07-24 03:26] VITALS: BMI 22.4
[2017-07-24 04:17] VITALS: O2SAT 97
--- NOTE | 2017-07-24 05:29 | C.PDOC ---
History Of Present Illness 42 year old male presents to the ER requesting to be seen by crisis for a psychiatric evaluation. Patient admits to a Hx of depression and notes he has not been taking his medications. Denies SI, HI, or physical complaints. Time Seen by Provider: 07/24/17 03:30 Chief Complaint (Nursing): Psychiatric Evaluation History Per: Patient History/Exam Limitations: no limitations Onset/Duration Of Symptoms: Days Current Symptoms Are (Timing): Still Present Suicide/Self Injury Attempted (Context): None Modifying Factor(s): None Associated Symptoms: Depression. denies: Suicidal Thoughts, Suicidal Plan Involuntary Hold By: None Past Medical History Reviewed: Historical Data, Nursing Documentation, Vital Signs Vital Signs: Last Vital Signs Temp 98.2 F 07/24/17 03:36 Pulse 96 H 07/24/17 03:36 Resp 18 07/24/17 03:36 BP 113/74 07/24/17 03:36 Pulse Ox 97 07/24/17 06:14 - Medical History PMH: Anxiety, Back Problems, Depression, Hypothyroidism Surgical History: No Surg Hx - [facility] Procedures DETOXIFICATION SERVICES FOR SUBSTANCE ABUSE TREATMENT (04/18/17) GROUP PSYCHOTHERAPY (04/18/17) INDIV PSYCHOTHERAPY FOR SUBSTANCE ABUSE TREATMENT, SUPPORT (04/18/17) INDIV PSYCHOTHERAPY FOR SUBSTANCE ABUSE, COGNITIV BEHAVIORAL (04/18/17) INDIV PSYCHOTHERAPY FOR SUBSTANCE ABUSE, PSYCHOEDUCATION (04/18/17) Family History: States: No Known Family Hx - Social History Hx Tobacco Use: Yes Hx Alcohol Use: No Hx Substance Use: Yes (Snorts Heroin) - Immunization History Hx Tetanus Toxoid Vaccination: Yes (about 5 years ago) Hx Influenza Vaccination: No Hx Pneumococcal Vaccination: No Review Of Systems Except As Marked, All Systems Reviewed And Found Negative. Cardiovascular: Negative for: Chest Pain Respiratory: Negative for: Shortness of Breath Gastrointestinal: Negative for: Nausea, Vomiting, Abdominal Pain, Diarrhea Psych: Positive for: Depression Physical Exam - Physical Exam Appears: Well, Non-toxic, No Acute Distress Skin: Normal Color, Warm, Dry Eye(s): bilateral: Normal Inspection Oral Mucosa: Moist Cardiovascular: Rhythm Regular Respiratory: Normal Breath Sounds, No Rales, No Rhonchi, No Wheezing Gastrointestinal/Abdominal: Normal Exam, Bowel Sounds, Soft, No Tenderness Extremity: Bilateral: Atraumatic, Normal Color And Temperature, Normal ROM Neurological/Psych: Oriented x3 Gait: Steady ED Course And Treatment O2 Sat by Pulse Oximetry: 97 (Room air) Pulse Ox Interpretation: Normal Progress Note: Urinalysis, UDS ordered and reviewed. Crisis notified. Reevaluation Time: 06:10 Reassessment Condition: Improved (Patient has been evaluated by crisis counselor , who discussed patient with psychiatrist relocation coordinator Dr. Calhoun. Patient cleared from discharge from psychiatric standpoint. He understands he should return to ED if he develops any concerning symptoms.) Disposition Counseled Patient/Family Regarding: Diagnosis, Need For Followup - Disposition Referrals: [facility] [Outside] [facility] [Outside] Disposition: HOME/ ROUTINE Disposition Time: 06:15 Condition: STABLE Instructions: Depression (ED) Forms: [employer] (Bulgarian) Print Language: MAURITANIAN - Clinical Impression Clinical Impression: Depression - Scribe Statement The provider has reviewed the documentation as recorded by the Scribe Carlton Patel All medical record entries made by the Scribe were at my direction and personally dictated by me. I have reviewed the chart and agree that the record accurately reflects my personal performance of the history, physical exam, medical decision making, and the department course for this patient. I have also personally directed, reviewed, and agree with the discharge instructions and disposition.
[2017-07-24 06:23] VITALS: BP 113/68; PULSE 62; RESP 17; TEMP 98
== END 2017-07-24 06:38 | disposition home or self-care (01) ==
LOC: C.ER 03:26
DX: F32.9 Major depressive disorder, single episode, unspecified (principal)

== ENCOUNTER 2017-10-23 16:29 | Emergency (ER) | payer SELFPAY ==
[2017-10-23 16:29] VITALS: BMI 22.4
[2017-10-23 16:37] VITALS: O2SAT 100
[2017-10-23 17:14] LABS: BASO # 0.1 K/uL (0.0-0.2); BASO % 1.4 % (0.0-2.0); EOS # 0.5 K/uL (0.0-0.7); EOS % 5.5 % (0.0-4.0); HEMATOCRIT 41.6 % (35.0-51.0); LYMPH # 2.5 K/uL (1.0-4.3); LYMPH % 27.7 % (20.0-40.0); MEAN CELL VOLUME 93.4 fL (80.0-94.0); MEAN CORPUSCULAR HEMOGLOBIN 32.1 pg (27.0-31.0); MEAN CORPUSCULAR HGB CONC 34.3 g/dL (33.0-37.0); MEAN PLATELET VOLUME 7.3 fL (7.2-11.7); MONO # 0.6 K/uL (0.0-0.8); MONO % 7.1 % (0.0-10.0); NRBC % 0.1 % (0.0-2.0); RED CELL DISTRIBUTION WIDTH 13.5 % (11.5-14.5); WHITE BLOOD COUNT 8.9 K/uL (4.8-10.8)
[2017-10-23 17:43] LABS: ALB/GLOB RATIO 1.3 (1.0-2.1); ALKALINE PHOSPHATASE 89 U/L (38-126); ALT/SGPT 87 U/L (21-72); AST/SGOT 162 U/L (17-59); BILIRUBIN,TOTAL 0.6 mg/dL (0.2-1.3); BLOOD UREA NITROGEN 16 mg/dL (9-20); CALCIUM 8.6 mg/dl (8.6-10.4); CARBON DIOXIDE 33 mmol/L (22-30); CHLORIDE 96 mmol/L (98-107); GFR AFRICAN-AMERICAN > 60; GLUCOSE,RANDOM 96 mg/dL (75-110); POTASSIUM 3.9 mmol/L (3.6-5.2); SODIUM 136 mmol/L (132-148); TOTAL PROTEIN 8.1 g/dL (6.3-8.3)
[2017-10-23] MEDS ORDERED: Iodixanol 320 MG/ML 100 ML BOTTLE IV ONE (18:13)
[2017-10-23 18:16] LABS: FT3 0.81 pg/mL (2.77-5.27)
--- NOTE | 2017-10-23 18:25 | C.PDOC ---
History Of Present Illness <RichardsonCarlos AlbertoYao M - Last Filed: 10/23/17 18:46> <Mir Bartlett R - Last Filed: 10/23/17 21:31> 42 year old male with Hx of hyperthyroidism presents to the ED c/o CP described as sharp associated with dizziness for the past 3 days. Patient reports being compliant with with his medications until now because they are running out. Patient states he is a smoker, but denies any Hx of DVT/PE, family Hx of heart disease or recent travel. (Maximilian Bai) History Per: Patient History/Exam Limitations: no limitations Onset/Duration Of Symptoms: Days Current Symptoms Are (Timing): Still Present Severity: None Quality: Sharp Associated Symptoms: Other (Dizziness) Modifying Factors: None Alleviating Factors: None Recent travel outside of the [place]: No Additional History Per: Patient <Carlos Alberto Baiabi Hawkins - Last Filed: 10/23/17 18:46> <Mir Bartlett - Last Filed: 10/23/17 21:31> Time Seen by Provider: 10/23/17 16:50 Chief Complaint (Nursing): Chest Pain Past Medical History Reviewed: Historical Data, Nursing Documentation, Vital Signs - Medical History PMH: Anxiety, Back Problems, Depression, Hyperthyroidism, Hypothyroidism Denies: Diabetes, Hepatitis, HIV (Patient denied), HTN (Patient denied), Chronic Kidney Disease, Seizures (Patient denied), Sexually Transmitted Disease (Patient denied) Surgical History: No Surg Hx Family History: States: Unknown Family Hx - Social History Hx Tobacco Use: Yes Hx Alcohol Use: No Hx Substance Use: Yes (Snorts Heroin) - Immunization History Hx Tetanus Toxoid Vaccination: Yes (about 5 years ago) Hx Influenza Vaccination: No Hx Pneumococcal Vaccination: No <RichardsonCarlos AlbertoYao M - Last Filed: 10/23/17 18:46> Vital Signs: Last Vital Signs Temp 97.5 F L 10/23/17 16:34 Pulse 67 10/23/17 19:48 Resp 14 10/23/17 19:48 BP 128/85 10/23/17 19:48 Pulse Ox 100 10/23/17 19:48 - [facility] Procedures DETOXIFICATION SERVICES FOR SUBSTANCE ABUSE TREATMENT (04/18/17) GROUP PSYCHOTHERAPY (04/18/17) INDIV PSYCHOTHERAPY FOR SUBSTANCE ABUSE TREATMENT, SUPPORT (04/18/17) INDIV PSYCHOTHERAPY FOR SUBSTANCE ABUSE, COGNITIV BEHAVIORAL (04/18/17) INDIV PSYCHOTHERAPY FOR SUBSTANCE ABUSE, PSYCHOEDUCATION (04/18/17) Review Of Systems Constitutional: Negative for: Fever Cardiovascular: Positive for: Chest Pain. Negative for: Palpitations Respiratory: Negative for: Cough, Shortness of Breath Gastrointestinal: Negative for: Nausea, Vomiting, Abdominal Pain Skin: Negative for: Rash Neurological: Negative for: Weakness, Numbness <Maximilian Bai - Last Filed: 10/23/17 18:46> Physical Exam - Physical Exam Appears: Non-toxic, No Acute Distress Skin: Normal Color, Warm, Dry Head: Atraumatic, Normacephalic Nose: No Discharge Oral Mucosa: Moist Neck: Normal ROM, Supple Chest: Symmetrical Cardiovascular: Rhythm Regular, No Murmur Respiratory: Normal Breath Sounds, No Rales, No Rhonchi, No Wheezing Gastrointestinal/Abdominal: Soft, No Tenderness, No Distention, No Guarding, No Rebound Extremity: Normal ROM, No Pedal Edema, No Calf Tenderness, No Swelling Neurological/Psych: Oriented x3, Normal Speech, Normal Cognition Gait: Steady <Maximilian Bai - Last Filed: 10/23/17 18:46> ED Course And Treatment - Laboratory Results Result Diagrams: 10/23/17 17:10 10/23/17 17:10 ECG: Interpreted By Me, Viewed By Me ECG Rhythm: Sinus Rhythm, R BBB (Incomplete), Nonspecific Changes (T wave) Interpretation Of ECG: EKG NSR at 72 BPM, with left axis deviation, incomplete RBBB, non specific T wave changes. Rate From EC O2 Sat by Pulse Oximetry: 100 (On RA) Pulse Ox Interpretation: Normal <Maximilian Bai - Last Filed: 10/23/17 18:46> - Laboratory Results Result Diagrams: 10/23/17 17:10 10/23/17 17:10 - CT Scan/US CT chest Other Rad Studies (CT/US): Interpreted By Me, Read By Radiologist, Radiology Report Reviewed CT/US Interpretation: EXAM: CT Angiography Chest With Intravenous Contrast. CLINICAL HISTORY: 42 years old, male; Pain; Chest pain; Left-sided chest pain; Additional info: SOB and chest pain. TECHNIQUE: Axial computed tomographic angiography images of the chest with intravenous contrast using. pulmonary embolism protocol. All CT scans at this facility use one or more dose reduction. techniques, viz.: automated exposure control; ma/kV adjustment per patient size (including targeted. exams where dose is matched to indication; i.e. head); or iterative reconstruction technique. Coronal and sagittal reformatted images were created and reviewed. COMPARISON: No relevant prior studies available. FINDINGS: Pulmonary arteries: Normal. No pulmonary embolism. Aorta: No acute findings. No thoracic aortic aneurysm. Lungs: Mild paraseptal emphysema. Central upper lobe predominant groundglass opacities ( axial. images 30, 49, 52, and 67). These are largest within the superior lingular segment left upper lobe. measuring 2.9 cm x 5.5 cm (axial image 67). No focal consolidation. 3 mm left upper lobe pulmonary. nodule (axial image 47) . Pleural space: No pneumothorax. No pleural effusion. Heart: Small pericardial effusion. No evidence of RV dysfunction. Mediastinum: Small hiatal hernia. Bones/joints: Degenerative changes of the acromioclavicular joints. No acute osseous abnormality. No dislocation. Soft tissues: Normal. Lymph nodes : Normal. No enlarged lymph nodes. Stomach and bowel: Moderate stool within the colon. Upper abdomen: The imaged upper abdomen is otherwise unremarkable. IMPRESSION: 1. No pulmonary embolism. 2. Mild central groundglass opacities as detailed above with the largest in the superior lingular. segment left upper lobe. These may represent atypical infection, early pulmonary edema, or chronic. infiltrative lung disease such as eosinophilic pneumonia or pulmonary alveolar proteinosis. RECOMMEND followup CT of the chest in 3 months to assess for persistence or resolution. 3. Left upper lobe pulmonary nodule measuring 3 mm. For low-risk patients, no follow-up is. necessary. For high-risk patients ( smoking history or other known risk factors) an optional chest CT. at 12 months could be performed. 4. Small pericardial effusion. 5. Small hiatal hernia. <Mir Bartlett R - Last Filed: 10/23/17 21:31> Medical Decision Making <Maximilian Bai M - Last Filed: 10/23/17 18:46> <Mir Bartlett R - Last Filed: 10/23/17 21:31> Medical Decision Making: Plan: * CT angio chest ordered * EKG ordered * Blood work ordered * CXR ordered * Ecotrin 162 mg PO given assessment: CP. Results reviewed showed his heart score was 2, D-Dimer was elevated so a CT was ordered. Patient will be signed to , still pending CT for further evaluation. ( Maximilian Bai) Disposition <Maximilian Bai - Last Filed: 10/23/17 18:46> Counseled Patient/Family Regarding: Diagnosis - Disposition Disposition Time: 21:31 - POA Present On Arrival: None <Mir Bartlett - Last Filed: 10/23/17 21:31> - Disposition Referrals: [facility] [Outside] Disposition: HOME/ ROUTINE Condition: STABLE Prescriptions: Azithromycin 500 mg PO DAILY #7 tablet Levothyroxine Sodium [Synthroid] 88 mcg PO DAILY #30 tablet Naproxen 375 mg PO TIDPC #14 tablet Instructions: Chest Pain (ED), Hypothyroidism (ED), Upper Respiratory Infection (ED) Forms: [employer] (Maltese) - Clinical Impression Clinical Impression: Chest pain, Upper respiratory infection, Hypothyroidism - Scribe Statement The provider has reviewed the documentation as recorded by the Scribe <Maximilian Bai - Last Filed: 10/23/17 18:46> <Mir Bartlett - Last Filed: 10/23/17 21:31> - Scribe Statement Misael Mars All medical record entries made by the Scribe were at my direction and personally dictated by me. I have reviewed the chart and agree that the record accurately reflects my personal performance of the history, physical exam, medical decision making, and the department course for this patient. I have also personally directed, reviewed, and agree with the discharge instructions and disposition. (Maximilian Bai)
[2017-10-23 19:17] LABS: T4 0.555 ug/dL (5.5-11.0)
[2017-10-23] MEDS ORDERED: Levothyroxine 88 MCG TAB PO STA (19:57)
[2017-10-23] MEDS ORDERED: cefTRIAXone IV 1 gm in Dextros 50 ML IVPB ONE (20:24)
[2017-10-23] MEDS ORDERED: Azithromycin 500 MG in Sodium Chloride 0.9% 250 ML IVPB STA (20:24)
[2017-10-23 21:43] VITALS: BP 122/90; PULSE 63; RESP 18; TEMP 98.8
--- NOTE | 2017-10-24 08:03 | RAD ---
PROCEDURE: CHEST RADIOGRAPH, 1 VIEW HISTORY: chest pain COMPARISON: Portable chest 04/09/2017 FINDINGS: LUNGS: No acute infiltrate bilaterally. PLEURA: No pneumothorax or pleural fluid seen. CARDIOVASCULAR: Normal. OSSEOUS STRUCTURES: No significant abnormalities. VISUALIZED UPPER ABDOMEN: Normal. OTHER FINDINGS: None. IMPRESSION: No interval acute cardiopulmonary disease appreciated.
--- NOTE | 2017-10-24 09:24 | CT ---
PROCEDURE: CT Chest with contrast (Pulmonary Angiogram) HISTORY: sob and chest pain COMPARISON: None available. TECHNIQUE: Axial computed tomography images were obtained of the chest in the pulmonary arterial phase of enhancement. Coronal and sagittal reformatted images were created and reviewed. Intravenous contrast dose: Visipaque 320, 100 cc. Radiation dose: Total exam DLP = 493.94 mGy-cm. This CT exam was performed using one or more of the following dose reduction techniques: Automated exposure control, adjustment of the mA and/or kV according to patient size, and/or use of iterative reconstruction technique. FINDINGS: PULMONARY ARTERIES: Unremarkable. No pulmonary embolism. AORTA: No acute findings. No thoracic aortic aneurysm. LUNGS: Trace ground-glass opacity seen at the medial left upper lobe and is minimally scattered at the right upper lobe as well. Trace emphysematous changes seen in the periphery of lateral apices further. No definitive pulmonary mass. Mucoid material is felt to be present at the inferior trachea and right mainstem bronchus lumina. PLEURAL SPACES: Unremarkable. No effusion or pneuomothorax. HEART: Unremarkable. No cardiomegaly. No significant pericardial effusion. LYMPH NODES: No lymphadenopathy. BONES, CHEST WALL: Unremarkable. No fracture or destructive lesion OTHER FINDINGS: Small hiatal hernia identified incidentally. IMPRESSION: 1. No CT evidence of pulmonary embolus. 2. Limited ground-glass infiltrate is seen at the medial left upper lobe and is minimally captured in several small foci at the right upper lobe potentially reflecting acute subacute interstitial pulmonary disease on reversible basis. Further clinical correlation is advised. No pleural or pericardial effusion or significant lymphadenopathy. No alveolitis is identified bilaterally. 3. Small hiatal hernia identified.
--- NOTE | 2017-10-24 23:14 | CARD ---
APPROVED REPORT EKG Measurement Heart [id number] <Conclusion> Sinus rhythm with 1st degree AV block Left axis deviation Incomplete right bundle branch block Nonspecific T wave abnormality Abnormal ECG
== END 2017-10-23 21:43 | disposition home or self-care (01) ==
LOC: C.ER 16:29
DX: R07.9 Chest pain, unspecified (principal); J06.9 Acute upper respiratory infection, unspecified; E03.9 Hypothyroidism, unspecified; Z72.0 Tobacco use
CPT/HCPCS: 71010; 71275; 80053; 83880; 84436; 84443; 84481; 84484; 85025; 85378; 87040; 93005; 96365; 99285; J0696; Q9967

== ENCOUNTER 2018-04-25 02:38 | Inpatient (IN) | payer MEDICAID, OTHER ==
[2018-04-25 02:38] VITALS: BMI 22.4
--- NOTE | 2018-04-25 02:50 | C.PDOC ---
History Of Present Illness 42 year old male presents to the ED for evaluation of suicidal ideation with a plan. Patient reports having suicidal thoughts with plan to cut his wrists. Patient admits to drinking alcohol and using heroin today [employer]. Patient denies HI , hallucinations, CP, SOB. Time Seen by Provider: 04/25/18 02:48 Chief Complaint (Nursing): Psychiatric Evaluation History Per: Patient History/Exam Limitations: intoxication Onset/Duration Of Symptoms: Hrs Current Symptoms Are (Timing): Still Present Suicide/Self Injury Attempted (Context): Cut Wrists Modifying Factor(s): Alcohol, Other (Heroin) Associated Symptoms: Depression, Suicidal Thoughts, Suicidal Plan Recent travel outside of the [place]: No Additional History Per: Patient Past Medical History Reviewed: Historical Data, Nursing Documentation, Vital Signs Vital Signs: Last Vital Signs Temp 97.4 F L 04/25/18 04:48 Pulse 56 L 04/25/18 04:48 Resp 16 04/25/18 04:48 BP 100/65 04/25/18 04:48 Pulse Ox 98 04/25/18 04:48 - Medical History PMH: Anxiety, Back Problems, Depression, Hyperthyroidism, Hypothyroidism Denies: Diabetes, Hepatitis, HIV (Patient denied), HTN (Patient denied), Chronic Kidney Disease, Seizures (Patient denied), Sexually Transmitted Disease (Patient denied) Surgical History: No Surg Hx - [facility] Procedures DETOXIFICATION SERVICES FOR SUBSTANCE ABUSE TREATMENT (04/18/17) GROUP PSYCHOTHERAPY (04/18/17) INDIV PSYCHOTHERAPY FOR SUBSTANCE ABUSE TREATMENT, SUPPORT (04/18/17) INDIV PSYCHOTHERAPY FOR SUBSTANCE ABUSE, COGNITIV BEHAVIORAL (04/18/17) INDIV PSYCHOTHERAPY FOR SUBSTANCE ABUSE, PSYCHOEDUCATION (04/18/17) Family History: States: Unknown Family Hx - Social History Hx Tobacco Use: Yes Hx Alcohol Use: No Hx Substance Use: Yes (Snorts Heroin) - Immunization History Hx Tetanus Toxoid Vaccination: Yes (about 5 years ago) Hx Influenza Vaccination: No Hx Pneumococcal Vaccination: No Review Of Systems Constitutional: Negative for: Fever, Chills Cardiovascular: Negative for: Chest Pain, Palpitations Respiratory: Negative for: Shortness of Breath Gastrointestinal: Negative for: Nausea, Vomiting Musculoskeletal: Negative for: Back Pain Skin: Negative for: Rash Neurological: Negative for: Weakness Psych: Positive for: Depression, Suicidal ideation Physical Exam - Physical Exam Appears: Non-toxic, No Acute Distress Skin: Warm, Dry Head: Normacephalic Eye(s): bilateral: Normal Inspection Oral Mucosa: Moist Neck: Supple Chest: Symmetrical Cardiovascular: Rhythm Regular Respiratory: No Rales, No Rhonchi, No Wheezing Gastrointestinal/Abdominal: Soft, No Tenderness, No Guarding, No Rebound Back: Normal Inspection Extremity: No Tenderness, No Swelling Extremity: Bilateral: Atraumatic, Normal Color And Temperature, Normal ROM Neurological/Psych: Oriented x3, Normal Speech Gait: Steady ED Course And Treatment - Laboratory Results Result Diagrams: 04/25/18 03:19 04/25/18 03:19 O2 Sat by Pulse Oximetry: 97 (ON RA) Pulse Ox Interpretation: Normal Progress Note: Plan: - Labs. - Crisis. - UA Disposition Discussed With : Boogie Dolan Comment: accepted the pt on his service and took over the care at 6:11 AM Doctor Will See Patient In The: Hospital Counseled Patient/Family Regarding: Studies Performed, Diagnosis - Disposition Disposition: HOSPITALIZED Disposition Time: 02:50 Condition: FAIR Forms: [employer] (Greek) - POA Present On Arrival: Poor Glycemic Control - Clinical Impression Clinical Impression: Major depressive disorder, recurrent, unspecified, Polysubstance abuse, Alcohol abuse - Scribe Statement The provider has reviewed the documentation as recorded by the Scribe Misael Mars All medical record entries made by the Scribe were at my direction and personally dictated by me. I have reviewed the chart and agree that the record accurately reflects my personal performance of the history, physical exam, medical decision making, and the department course for this patient. I have also personally directed, reviewed, and agree with the discharge instructions and disposition. Decision To Admit - Pt Status Changed To: Hospital Disposition Of: Inpatient - Admit Certification Admit to Inpatient:: After my assessment, the patient will require hospitalization for at least two midnights. This is because of the severity of symptoms shown, intensity of services needed, and/or the medical risk in this patient being treated as an outpatient. - InPatient: Physician Admission Certification: I certify that this patient requires 2 or more midnights of care for the following reason:: After my assessment, the patient will require hospitalization for at least two midnights. This is because of the severity of symptoms shown, intensity of services needed, and/or the medical risk in this patient being treated as an outpatient. - . Bed Request Type: Psychiatry Admitting Physician: Boogie Dolan Patient Diagnosis: Major depressive disorder, recurrent, unspecified, Polysubstance abuse, Alcohol abuse
[2018-04-25 03:22] LABS: BASO # 0.1 K/uL (0.0-0.2); BASO % 1.2 % (0.0-2.0); EOS # 0.5 K/uL (0.0-0.7); EOS % 5.1 % (0.0-4.0); HEMOGLOBIN 12.8 g/dL (12.0-18.0); LYMPH # 2.9 K/uL (1.0-4.3); LYMPH % 30.2 % (20.0-40.0); MEAN CELL VOLUME 94.5 fL (80.0-94.0); MEAN CORPUSCULAR HEMOGLOBIN 33.4 pg (27.0-31.0); MEAN CORPUSCULAR HGB CONC 35.3 g/dL (33.0-37.0); MEAN PLATELET VOLUME 7.3 fL (7.2-11.7); MONO # 0.7 K/uL (0.0-0.8); MONO % 7.3 % (0.0-10.0); NEUT # 5.4 K/uL (1.8-7.0); NEUT % 56.2 % (50.0-75.0); NRBC % 0.1 % (0.0-2.0); RBC 3.83 Mil/uL (4.40-5.90); RED CELL DISTRIBUTION WIDTH 13.2 % (11.5-14.5); WHITE BLOOD COUNT 9.6 K/uL (4.8-10.8)
[2018-04-25 03:36] LABS: ALB/GLOB RATIO 1.3 (1.0-2.1); ALBUMIN 4.6 g/dL (3.5-5.0); ALT/SGPT 25 U/L (21-72); AST/SGOT 53 U/L (17-59); BLOOD UREA NITROGEN 18 mg/dL (9-20); CALCIUM 8.9 mg/dl (8.6-10.4); GFR AFRICAN-AMERICAN > 60; GFR NON-AFRICAN AMERICAN > 60
[2018-04-25 05:30] LABS: SPERM URINE RARE /hpf; URINE BILIRUBIN NEGATIVE (NEGATIVE); URINE BLOOD NEGATIVE (NEGATIVE); URINE CLARITY Hazy (Clear); URINE COLOR Yellow (YELLOW); URINE GLUCOSE (UA) NORMAL (Normal); URINE LEUKOCYTE ESTERASE NEG Leu/uL (Negative); URINE PROTEIN NEGATIVE (NEGATIVE)
[2018-04-25 05:43] LABS: BARBITURATES, UR NEGATIVE (NEGATIVE); PHENCYCLIDINE, UR NEGATIVE (NEGATIVE)
[2018-04-25 05:51] LABS: BENZODIAZEPINES, UR POSITIVE (NEGATIVE); OPIATES, UR POSITIVE (NEGATIVE)
--- NOTE | 2018-04-25 07:37 | PCM.BM ---
<EctorPrudence - Last Filed: 04/25/18 07:34> Treatment Plan Problems - Problems identified on initial assessmt Depression Date Initiated: 04/25/18 Time Initiated: 07:35 Assessment reference: NA Status: Active Substance abuse Date Initiated: 04/25/18 Time Initiated: 07:36 Assessment reference: NA Status: Active Treatment assets and liabiliti Patient Assests: cooperative, ADL independent, physically healthy, negotiates basic needs, cognitively intact Patient Liabilities: live alone (homeless), financial problems, poor support system, relationship conflicts, substance abuse (opiates, THC, etoh bal 31, benzos), medical problems (hyperthroidism, hypothyroidism, back problems) - Milieu Protocol Maintain good personal hygiene: daily Encourage regular showers, daily Remind patient to perform daily oral care, daily Assist patient to perform ADL's (self) Conduct patient checks and document Observation sheet: Q15 minutes (safety) Maintain personal safety: every shift Educate patient to report safety concerns to staff, every shift Monitor environment for contraband/sharps Medication safety: Monitor for expected outcome, potential side effects: every shift, Assess barriers to learning: every shift, Assess readiness for medication education: every shift <Mckenzie Benitez - Last Filed: 04/26/18 16:18> Family Contact Family involvement: Patient does not wish Family/SO involvement Family contact: Patient declines to allow family contact at present - Goals for Treatment Patient goals for treatment: "I want to go to a rehab program." Discharge/Continuing Care - Education Needs Education Needs: Patient Medication, Patient Diagnosis/Disease Process, Patient Coping Skills, Patient Placement options, Patient Community resources - Discharge Discharge Criteria: Free of Suicidal thoughts, Ability to care for self, No longer exhibiting s/s of withdrawal, Reduction of target symptoms Discharge to:: Substance Abuse Rehab - Treatment Team Participation Discussed with Family/SO: No Was Patient/Family/SO present at Treatment Team Meeting: Rhiannon
[2018-04-25] MEDS ORDERED: Aluminum Hydroxide/Magnesium Hydroxide Susp (30 mL) PO PRN (08:53)
[2018-04-25] MEDS: Levothyroxine 50 MCG TAB PO SCH (10:15)
--- NOTE | 2018-04-25 10:19 | PCM.PSYCH ---
Initial Psychiatric Evaluation - Initial Psychiatric Evaluation Type of Admission: Voluntary Legal Status: Capacity Chief Complaint (in patient's own words): I was feeling depressed and suicidal.' History of Present Illness and Precipitating Events: Patient is a 42-year-old male who currently lives with his girlfriend and currently unemployed, was admitted this morning because depressed mood, opiate abuse, and suicidal ideation with no plan. Patient denies auditory, visual, or tactile hallucinations. Patient expressed feelings of depression with suicidal ideation but no plan. Patient has multiple previous attempts of suicide including using a gun (gun was jammed), hanging himself in longterm (patient was revived with CPR), overdosing on pills, jumping in front of a truck (injured for several months), and cut wound on both forearms. Prior to admission, patient says he climbed a roof in [facility] and was about to jump off. Patient had decided to stop himself because he felt the decision to commit suicide is selfish. Patient is extremely hopeless. He has had a rough childhood. His mother was a heroin addict and his father was an alcoholic. Patient spent most of his time in group homes with his siblings. Patient states his mother came to bead picker him and his siblings to bring them home. Patient says after that day he become depressed and became a drug addict himself, including his brother and sister. Patient started using heroin at the age of 14. Patient was incarcerated several times, the longest being 10 years in [id number] for a robbery and planned kidnap. Patient attended several group therapies for depression while incarcerated. He has also attended NA and AA meetings in the past as well. Patient said these types of programs have helped significantly but always relapsed after leaving the programs. After he was released from his last sentence, 2017, patient states he is a changed man and does not want to continue the screwed path he started to be on since the age of 14. Patient has been admitted in the psychiatry unit in [facility] twice in 2017. Both times he left [place]. The last time patient saw a psychiatrist was in [place] 4 months ago. Patient was prescribed a medication in which he had to take via IV. Upon learning about the method of using the medication, the patient decided to cut ties with the psychiatrist because IV medications reminded him of his heroin addiction. Patient has been snorting 30-40 bags of heroin a day for the past several months. The last time he used heroin was yesterday. Patient is experiencing withdrawal, complaining of runny nose, nausea, headaches, joint pain, fatigue, and congestion. Patient lives with his girlfriend. Patient states he is in an unhealthy relationship with her. Patient says he does not enable her but her alcohol addiction triggers his heroin addiction sometimes. 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 Patient expresses high interest in a rehab program to help him with his addiction and depression. Patient states he also plans on becoming more advent as well. Patient is visibly upset and crying during the entirety of the interview. Medical Hx: Hypothyroidism Surgical Hx: right hip intertroch ORIF IM nail (07/2017), multiple abdominal surgeries for unknown reasons; EMR states cholecystectomy, hysterectomy, appendectomy, 2 back surgeries for unknown reasons. Medications: Levothyroxine Psych Hx: MDD Fam Hx: Mother, Brother, Sister have history of opiate use disorder. Father has history of alcohol use disorder. Allergies: NKDA Current Medications: Active Medications Generic Name Dose Route Start Last Admin Trade Name Freq PRN Reason Stop Dose Admin Al Hydrox/Mg Hydrox/Simethicone 30 ml 04/25/18 08:53 Maalox 30 Ml PO TID PRN Indigestion / Heartburn Clonidine HCl 0.1 mg 04/25/18 08:53 Catapres PO Q8 PRN COWS Score More or Equal to 5 Haloperidol 5 mg 04/25/18 08:51 Haldol PO Q1H PRN agitation max 4x/24h Hydroxyzine HCl 50 mg 04/25/18 08:51 Atarax PO Q6H PRN Anxiety Ibuprofen 600 mg 04/25/18 08:51 Motrin Tab PO Q6H PRN Pain, moderate (4-7) Levothyroxine Sodium 50 mcg 04/25/18 10:00 04/25/18 10:15 Synthroid PO 50 mcg DAILY@0630 MIESHA Administration Loperamide HCl 2 mg 04/25/18 08:53 Imodium PO Q8 PRN Diarrhea Ondansetron HCl 4 mg 04/25/18 08:53 Zofran Tab PO Q8 PRN Nausea/Vomiting Pneumococcal Polyvalent Vaccine 0.5 ml 04/28/18 10:00 Pneumovax 23 Vaccine IM 04/28/18 10:01 .ONCE ONE Pseudoephedrine HCl 60 mg 04/25/18 10:15 Sudafed Tab PO QID PRN Nasal/Sinus Congestion Quetiapine Fumarate 100 mg 04/25/18 22:00 Seroquel PO HS MIESHA Past Psychiatric History - Past Psychiatric History Previous Treatment History: None Pertinent Medical Hx (Current Medical&Sleep Prob, Allergies): Allergies Allergy/AdvReac Type Severity Reaction Status Date / Time No Known Allergies Allergy Verified 04/25/18 02:47 Levothyroxine [Synthroid] 50 mcg PO DAILY 04/25/18 Review of Systems - Review of Systems All systems: reviewed and no additional remarkable complaints except - Neurological Neurological: UNREMARKABLE - Psychiatric Psychiatric: Anxiety, Depression, Hopelessness, Irritability, Suicidal Ideation. absent: Auditory Hallucinations, Hallucinations, Homicidal Ideation, Panic Attacks, Paranoia, Visual Hallucinations, Tactile Hallucinations Mental Status Examination - Personal Presentation Personal Presentation: Looks stated age - Affect Affect: Constricted, Depressed - Motor Activity Motor Activity: Psychomotor Retardation - Reliability in Providing Information Reliability in Providing Information: Fair - Speech Speech: Organized - Mood Mood: Depressed, Anxious - Formal Thought Process Formal Thought Process: No Impairment - Obsessions/Compulsions Obsessions: No Compulsions: No - Cognitive Functions Orientation: Person, Place, Situation, Time Sensorium: Alert Attention/Concentration: Attentive Abstract Thinking: Sproul Estimate of Intelligence: Below average Judgement: Imparied, as evidence by: Poor judgement, Imparied, as evidence by: Lack of insight into illness - Risk Risk: Suicidal, Withdrawal, Diminished functioning - Limitations Limitations: Living alone DSM 5 DX - DSM 5 DSM 5 Diagnosis: Major depressive disorder recurrent severe without psychotic features Opiate use disorder severe Opiate withdrawal Cannabis use disorder severe - Recommended/Plan of Treatment Treatment Recommendations and Plan of Treatment: Major depressive disorder recurrent severe without psychotic features -CBT -Psychoeducation -Supportive therapy, group therapy, individual therapy -Trazodone 100 mg by mouth daily at bedtime -Seroquel 100 mg PO QHS -Gabapentin 100 mg po TID -Sertraline 50 mg PO Daily Opioid use disorder severe -CBT -Psychoeducation -Supportive therapy, individual therapy -Use WI for abstinence Opioid withdrawal -CBT -Psychoeducation -Supportive therapy, individual therapy -Clonidine when necessary -Methadone taper Cannabis use disorder severe -Monitor signs and symptoms -Use WI for abstinence Hypothyroidism -Continue prescribed medications - Smoking Cessation Smoking Cessation Initiated: No
[2018-04-26] MEDS: Levothyroxine 50 MCG TAB PO SCH (05:59)
[2018-04-27] MEDS: Levothyroxine 50 MCG TAB PO SCH (06:03)
--- NOTE | 2018-04-27 10:04 | PCM.PYCHPN ---
Psychiatric Progress Note - Psychiatric Progress Note Patient seen today, length of contact: 15 min Patient Chief Complaint: I was feeling depressed and suicidal.' Problems Identified/Issues Discussed: Patient seen and evaluated, chart reviewed and discussed with the nurse. Pt still reports depressed mood and feelings of hopelessness and helplessness. He is on methadone taper and reports withdrawal symptoms including cramps, back pain and sweating He reports poor sleep and poor appetite. As per staff he remained isolated and withdrawn, and remained confined to his room. He is taking medications and denies any side effects Symptoms are improving but he needs more time for stabilization. Supportive therapy and psychoeducation were given. Medication Change: Yes Medical Record Reviewed: Yes Mental Status Examination - Cognitive Function Orientation: Person, Place, Situation, Time Memory: Intact Attention: WNL Concentration: Poor Association: Loose Fund of Knowledge: WNL - Mood Mood: Depressed, Anxious - Affect Affect: Constricted, Depressed - Speech Speech: Soft - Formal Thought Process Formal Thought Process: Loosening of associations - Suicidal Ideation Suicidal Ideation: No - Homicidal Ideation Homicidal Ideation: No Goal/Treatment Plan - Goal/Treatment Plan Need for Continued Stay: Severe depression anxiety, Severe functional impairment Progress Toward Problem(s) and Goals/Treatment Plan: Major depressive disorder recurrent severe without psychotic features -CBT -Psychoeducation -Supportive therapy, group therapy, individual therapy -Trazodone 100 mg by mouth daily at bedtime -Seroquel 100 mg PO QHS -Gabapentin 100 mg po TID -Sertraline 50 mg PO Daily Opioid use disorder severe -CBT -Psychoeducation -Supportive therapy, individual therapy -Use NV for abstinence Opioid withdrawal -CBT -Psychoeducation -Supportive therapy, individual therapy -Clonidine when necessary -Methadone taper Cannabis use disorder severe -Monitor signs and symptoms -Use NV for abstinence Hypothyroidism -Continue prescribed medications
[2018-04-28] MEDS: Levothyroxine 50 MCG TAB PO SCH (06:02)
[2018-04-28] MEDS ORDERED: Pneumococcal 23-Valent Vaccine IM ONE (10:00)
--- NOTE | 2018-04-28 16:08 | PCM.PYCHPN ---
Psychiatric Progress Note - Psychiatric Progress Note Patient seen today, length of contact: 15 min Patient Chief Complaint: I m feeling a little better.' Problems Identified/Issues Discussed: Patient seen and evaluated, chart reviewed and discussed with the nurse. Today patient reports some improvement in his mood and reports some improvement in the feelings of hopelessness and helplessness. Today he started coming out of his room but still reports poor sleep and poor appetite. He still reports withdrawal symptoms including cramps, back pain and sweating He is taking medications and denies any side effects Symptoms are improving but he needs more time for stabilization. Supportive therapy and psychoeducation were given. Medication Change: Yes Medical Record Reviewed: Yes Mental Status Examination - Cognitive Function Orientation: Person, Place, Situation, Time Memory: Intact Attention: WNL Concentration: Poor Association: Loose Fund of Knowledge: WNL - Mood Mood: Depressed, Anxious - Affect Affect: Constricted, Depressed - Speech Speech: Soft - Formal Thought Process Formal Thought Process: Loosening of associations - Suicidal Ideation Suicidal Ideation: No - Homicidal Ideation Homicidal Ideation: No Goal/Treatment Plan - Goal/Treatment Plan Need for Continued Stay: Severe depression anxiety, Severe functional impairment Progress Toward Problem(s) and Goals/Treatment Plan: Major depressive disorder recurrent severe without psychotic features -CBT -Psychoeducation -Supportive therapy, group therapy, individual therapy -Trazodone 100 mg by mouth daily at bedtime -Seroquel 100 mg PO QHS -Gabapentin 100 mg po TID -Sertraline 100 mg PO Daily Opioid use disorder severe -CBT -Psychoeducation -Supportive therapy, individual therapy -Use [place] for abstinence Opioid withdrawal -CBT -Psychoeducation -Supportive therapy, individual therapy -Clonidine when necessary -Methadone taper Cannabis use disorder severe -Monitor signs and symptoms -Use OH for abstinence Hypothyroidism -Continue prescribed medications
--- NOTE | 2018-04-28 16:08 | PCM.PYCHPN ---
Psychiatric Progress Note - Psychiatric Progress Note Patient seen today, length of contact: 15 min Patient Chief Complaint: I m feeling depressed.' Problems Identified/Issues Discussed: Patient seen and evaluated, chart reviewed and discussed with the nurse. Pt still reports depressed mood and feelings of hopelessness and helplessness. He is on methadone taper and reports withdrawal symptoms including cramps, back pain and sweating He reports poor sleep and poor appetite. As per staff he remained isolated and withdrawn, and remained confined to his room. He is taking medications and denies any side effects Symptoms are improving but he needs more time for stabilization. Supportive therapy and psychoeducation were given. Medication Change: Yes Medical Record Reviewed: Yes Mental Status Examination - Cognitive Function Orientation: Person, Place, Situation, Time Memory: Intact Attention: WNL Concentration: Poor Association: Loose Fund of Knowledge: WNL - Mood Mood: Depressed, Anxious - Affect Affect: Constricted, Depressed - Speech Speech: Soft - Formal Thought Process Formal Thought Process: Loosening of associations - Suicidal Ideation Suicidal Ideation: No - Homicidal Ideation Homicidal Ideation: No Goal/Treatment Plan - Goal/Treatment Plan Need for Continued Stay: Severe depression anxiety, Severe functional impairment Progress Toward Problem(s) and Goals/Treatment Plan: Major depressive disorder recurrent severe without psychotic features -CBT -Psychoeducation -Supportive therapy, group therapy, individual therapy -Trazodone 100 mg by mouth daily at bedtime -Seroquel 100 mg PO QHS -Gabapentin 100 mg po TID -Sertraline 50 mg PO Daily Opioid use disorder severe -CBT -Psychoeducation -Supportive therapy, individual therapy -Use SD for abstinence Opioid withdrawal -CBT -Psychoeducation -Supportive therapy, individual therapy -Clonidine when necessary -Methadone taper Cannabis use disorder severe -Monitor signs and symptoms -Use SD for abstinence Hypothyroidism -Continue prescribed medications
[2018-04-29] MEDS: Levothyroxine 50 MCG TAB PO SCH (06:29)
--- NOTE | 2018-04-29 16:48 | PCM.PYCHPN ---
Psychiatric Progress Note - Psychiatric Progress Note Patient seen today, length of contact: 15 min Patient Chief Complaint: "My withdrawal symptoms are getting better" Problems Identified/Issues Discussed: Patient seen and evaluated, chart reviewed and discussed with the nurse. Pt still reports depressed mood. However, he reported improvement in his feelings of hopelessness and helplessness. He reports improvement in withdrawal symptoms including cramps, back pain and sweating He reports poor sleep and poor appetite. As per staff he remained isolated and withdrawn, and remained confined to his room. He is taking medications and denies any side effects Medication Change: No Medical Record Reviewed: Yes Mental Status Examination - Cognitive Function Orientation: Person, Place, Situation, Time Memory: Intact Attention: WNL Concentration: Poor Association: Loose Fund of Knowledge: WNL Decription of patient's judgement and insights: limited/limited - Mood Mood: Depressed, Anxious - Affect Affect: Constricted, Depressed - Speech Speech: Soft - Formal Thought Process Formal Thought Process: Loosening of associations - Suicidal Ideation Suicidal Ideation: No Plan: denied - Homicidal Ideation Homicidal Ideation: No Plan: denied Goal/Treatment Plan - Goal/Treatment Plan Need for Continued Stay: Severe depression anxiety, Severe functional impairment Progress Toward Problem(s) and Goals/Treatment Plan: Continue current treatment as per primary team. Psychoeducation provided regarding diagnosis, treatment, meds benefits, side effects, risk and alternative choices. Pt verbalized understanding and agree with the treatment plan. Continue current management and medications. Patient educated about risks, benefits, side effects & alternatives of meds. Pt verbalized understanding & agreed with the above. Therapy in milieu.
[2018-04-30] MEDS: Levothyroxine 50 MCG TAB PO SCH (06:43)
[2018-04-30 06:55] VITALS: BP 100/60; PULSE 51; RESP 20; TEMP 98; O2SAT 100
--- NOTE | 2018-04-30 11:54 | PCM.PYCHDC ---
Mental Status Examination - Mental Status Examination Orientation: Person, Place, Situation, Time Memory: Intact Mood: Neutral Affect: Broad Speech: Appropriate Attention: WNL Concentration: WNL Association: WNL Fund of Knowledge: WNL Formal Thought Process: No Impairment Description of patient's judgement and insight: fair/fair Psychotic Thoughts and Behaviors: denied Suicidal Ideation: No Current Homicidal Ideation?: No Plan: denied Discharge Summary - Discharge Note Reason for Hospitalization: Patient is a 42-year-old male who currently lives with his girlfriend and currently unemployed, was admitted this morning because depressed mood, opiate abuse, and suicidal ideation with no plan. Patient denies auditory, visual, or tactile hallucinations. Patient expressed feelings of depression with suicidal ideation but no plan. Patient has multiple previous attempts of suicide including using a gun (gun was jammed), hanging himself in half-way (patient was revived with CPR), overdosing on pills, jumping in front of a truck (injured for several months), and cut wound on both forearms. Prior to admission, patient says he climbed a roof in [facility] and was about to jump off. Patient had decided to stop himself because he felt the decision to commit suicide is selfish. Patient is extremely hopeless. He has had a rough childhood. His mother was a heroin addict and his father was an alcoholic. Patient spent most of his time in group homes with his siblings. Patient states his mother came to pickle processor him and his siblings to bring them home. Patient says after that day he become depressed and became a drug addict himself, including his brother and sister. Patient started using heroin at the age of 14. Patient was incarcerated several times, the longest being 10 years in [id number] for a robbery and planned kidnap. Patient attended several group therapies for depression while incarcerated. He has also attended NA and AA meetings in the past as well. Patient said these types of programs have helped significantly but always relapsed after leaving the programs. After he was released from his last sentence, 2017, patient states he is a changed man and does not want to continue the screwed path he started to be on since the age of 14. Patient has been admitted in the psychiatry unit in [facility] twice in 2017. Both times he left [place]. The last time patient saw a psychiatrist was in [place] 4 months ago. Patient was prescribed a medication in which he had to take via IV. Upon learning about the method of using the medication, the patient decided to cut ties with the psychiatrist because IV medications reminded him of his heroin addiction. Patient has been snorting 30-40 bags of heroin a day for the past several months. The last time he used heroin was yesterday. Patient is experiencing withdrawal, complaining of runny nose, nausea, headaches, joint pain, fatigue, and congestion. Patient lives with his girlfriend. Patient states he is in an unhealthy relationship with her. Patient says he does not enable her but her alcohol addiction triggers his heroin addiction sometimes. Patient has worked in the past for a [employer] company but states he left because getting paid for any job triggers him to buy more heroin. Patient expresses high interest in a rehab program to help him with his addiction and depression. Patient states he also plans on becoming more anabaptist as well. Patient is visibly upset and crying during the entirety of the interview. Medical Hx: Hypothyroidism Surgical Hx: right hip intertroch ORIF IM nail (07/2017), multiple abdominal surgeries for unknown reasons; EMR states cholecystectomy, hysterectomy, appendectomy, 2 back surgeries for unknown reasons. Medications: Levothyroxine Psych Hx: MDD Fam Hx: Mother, Brother, Sister have history of opiate use disorder. Father has history of alcohol use disorder. Allergies: NKDA Consultations:: List each consultation separately and include: 1. Reason for request. 2. Findings. 3. Follow-up Summary of Hospital Course include:: 1. Description of specific treatment plan utilized for patients during their course of treatmen. 2. Summarize the time- course for resolution of acute symptoms and/or regressed behaviors. 3. Describe issues identified and worked on during hospitalization. 4. Describe medication utilized. 5. Describe medical problems identified and treated. 6. Reassessment of suicide risk Summary of Hospital Course: The pt was admitted for treatment of depression and opioid withdrawal symptoms. He received medications, supportive therapy and psychoeducation. [place] and CBT techniques were used. The pt was compliant with the treatment. The pt attended groups and activities, as well as milieu therapy. All the risks and benefits of medications were discussed and the patient understood and agreed. The pt improved with the treatment. Pt appreciate the treatment and care which was provided to him. At the time of d/c pt denied any depresive symptoms, manic symptoms. He denied SI, HI, intent or plan. He denied access to guns. Pt denied any perceptual disturbances. He had behavioral issues. Psychoeducation was provided to the pt to be compliant with the medication, treatment plan and f/u plan after the discharge. Pt stated that he wants to stay away from illicit drugs use. After care discussed with the patient. Diagnosis: MDD, RECURRENT SEVERE WITHOUT PSYCHOTIC FEATURES Opioid use disorder, severe, dependence, Opioid withdrawal Cannabis use disorder, severe, dependence Time spend 25 minutes - Diagnosis (1) Depression Status: Resolved - Final Diagnosis (DSM 5) Condition upon Discharge: STABLE Disposition: HOME/ ROUTINE Follow-up Treatment Plan: Continue current treatment as per primary team. Psychoeducation provided regarding diagnosis, treatment, meds benefits, side effects, risk and alternative choices. Pt verbalized understanding and agree with the treatment plan. Continue current management and medications. Patient educated about risks, benefits, side effects & alternatives of meds. Pt verbalized understanding & agreed with the above. Therapy in milieu. Prescriptions/Medication Reconciliation: Sertraline [Zoloft] 100 mg PO DAILY 15 Days #15 tab - Smoking Cessation Smoking Cessation Medication prescribed: Yes - Antipsychotic Medications Pt discharged on 2 or more routine antipsychotic medications: No
== END 2018-04-30 13:28 | disposition home or self-care (01) | DRG 430 ==
LOC: C.ER 02:38 → C.5E 06:10
PROVIDERS: ADMIT Psychiatry & Neurology Psychiatry; ATTEND Psychiatry & Neurology Psychiatry
PROC: GZ58ZZZ Individual Psychotherapy, Cognitive-Behavioral (ICD-10-PCS; principal; 2018-04-25)
PROC: GZ56ZZZ Individual Psychotherapy, Supportive (ICD-10-PCS; 2018-04-25)
PROC: HZ56ZZZ Individual Psychotherapy for Substance Abuse Treatment, Psychoeducation (ICD-10-PCS; 2018-04-25)
PROC: HZ59ZZZ Individual Psychotherapy for Substance Abuse Treatment, Supportive (ICD-10-PCS; 2018-04-25)
DX: F33.2 Major depressive disorder, recurrent severe without psychotic features (principal); E05.90 Thyrotoxicosis, unspecified without thyrotoxic crisis or storm; F11.23 Opioid dependence with withdrawal; F91.9 Conduct disorder, unspecified; R45.851 Suicidal ideations; Z79.899 Other long term (current) drug therapy; Z81.1 Family history of alcohol abuse and dependence; F41.9 Anxiety disorder, unspecified; E03.9 Hypothyroidism, unspecified; F12.20 Cannabis dependence, uncomplicated

== ENCOUNTER 2018-06-30 11:36 | Emergency (ER) | payer MEDICAID ==
[2018-06-30 11:43] VITALS: BMI 23.1
[2018-06-30 11:45] VITALS: TEMP 98.3
--- NOTE | 2018-06-30 12:19 | RAD ---
Date of service: 06/30/2018 HISTORY: constipation COMPARISON: No prior. FINDINGS: BOWEL: Moderate retained stool. No evidence of bowel obstruction. No hepatic or splenic enlargement. No masses or abnormal intra-abdominal calcifications. BONES: Normal. OTHER FINDINGS: None. IMPRESSION: Moderate retained feces. No evidence of bowel obstruction.
--- NOTE | 2018-06-30 12:52 | C.PDOC ---
History Of Present Illness 43 y/o male presents to the ED complaining of abdominal distension and constipation. States he has not had regular bowel movements throughout the past 2 weeks. 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 Patient also reports a history of hypothyroidism and has been noncompliant with synthroid for over 1 month. He denies any pain, fever, chills, nausea, vomiting, or other associated symptoms. Time Seen by Provider: 06/30/18 11:48 Chief Complaint (Nursing): Abdominal Pain History Per: Patient History/Exam Limitations: no limitations Onset/Duration Of Symptoms: Days Current Symptoms Are (Timing): Still Present Quality Of Discomfort: Other (Bloating) Associated Symptoms: Constipation Past Medical History Reviewed: Historical Data, Nursing Documentation, Vital Signs Vital Signs: Last Vital Signs Temp 98.3 F 06/30/18 11:42 Pulse 78 06/30/18 13:17 Resp 15 06/30/18 13:17 BP 130/81 06/30/18 13:17 Pulse Ox 98 06/30/18 13:17 - Medical History PMH: Anxiety, Back Problems, Depression, Hyperthyroidism, Hypothyroidism, Post Traumatic Stress Disorder Denies: Diabetes, Hepatitis, HIV (Patient denied), HTN (Patient denied), Chronic Kidney Disease, Seizures (Patient denied), Sexually Transmitted Disease (Patient denied) - [facility] Procedures DETOXIFICATION SERVICES FOR SUBSTANCE ABUSE TREATMENT (04/18/17) GROUP PSYCHOTHERAPY (04/18/17) INDIV PSYCHOTHERAPY FOR SUBSTANCE ABUSE TREATMENT, SUPPORT (04/25/18) INDIV PSYCHOTHERAPY FOR SUBSTANCE ABUSE, COGNITIV BEHAVIORAL (04/18/17) INDIV PSYCHOTHERAPY FOR SUBSTANCE ABUSE, PSYCHOEDUCATION (04/25/18) INDIVIDUAL PSYCHOTHERAPY, COGNITIVE-BEHAVIORAL (04/25/18) INDIVIDUAL PSYCHOTHERAPY, SUPPORTIVE (04/25/18) Family History: States: Unknown Family Hx - Social History Hx Tobacco Use: Yes Hx Alcohol Use: No Hx Substance Use: No - Immunization History Hx Tetanus Toxoid Vaccination: Yes Hx Influenza Vaccination: Yes Hx Pneumococcal Vaccination: Yes Review Of Systems Except As Marked, All Systems Reviewed And Found Negative. Constitutional: Negative for: Fever, Chills Gastrointestinal: Positive for: Constipation, Other (Bloating/abdominal distension). Negative for: Nausea, Vomiting, Abdominal Pain Physical Exam - Physical Exam Appears: Non-toxic, No Acute Distress Skin: Normal Color, Warm, Dry Head: Atraumatic, Normacephalic Eye(s): bilateral: Normal Inspection Nose: Normal Neck: Normal ROM, Supple Chest: Symmetrical Cardiovascular: Rhythm Regular, No Murmur Respiratory: Normal Breath Sounds, No Rales, No Rhonchi, No Wheezing Gastrointestinal/Abdominal: Bowel Sounds (tympanic, bloated), Soft, No Tenderness (no point tenderness, patient reports diffuse discomfort), No Guarding, No Rebound Back: Normal Inspection, No CVA Tenderness Extremity: Bilateral: Atraumatic, Normal Color And Temperature, Normal ROM Neurological/Psych: Oriented x3, Normal Speech Gait: Steady ED Course And Treatment O2 Sat by Pulse Oximetry: 96 (RA) Pulse Ox Interpretation: Normal - Other Rad abd flat plate x-ray X-Ray: Viewed By Me, Read By Radiologist Interpretation: FINDINGS: BOWEL: Moderate retained stool. No evidence of bowel obstruction. No hepatic or splenic enlargement. No masses or abnormal intra-abdominal calcifications. BONES: Normal. OTHER FINDINGS: None. IMPRESSION: Moderate retained feces. No evidence of bowel obstruction. Medical Decision Making Medical Decision Making: Impression: Abdominal bloating, constipation Plan: --Abdomen flat plate x-ray --TSH level Patient informed of x-ray findings, all questions answered. Case discussed with patients PMD, [employer] Maura Harrell, who advises giving prescription for his Synthroid and multiple medications for the constipation. Patient is stable for discharge home. Counseled regarding diagnoses and advised to follow up with the office. Disposition Discussed With DrArtis: Maura Harrell Counseled Patient/Family Regarding: Diagnosis, Need For Followup, Rx Given - Disposition Referrals: Maura Harrell APN [Advanced Practice Nurse] - Disposition: HOME/ ROUTINE Disposition Time: 13:01 Condition: STABLE Prescriptions: Bisacodyl [Ducolax] 10 mg RC HS #8 sup Levothyroxine [Synthroid] 0.088 mg PO DAILY #30 tab Phosphate Enema [Fleet Enema 135 Ml] 135 ml RC DAILY #3 nma Psyllium Husk/Aspartame [Metamucil Fiber Singles Packet] 3.4 gm PO DAILY #30 powd.pack Instructions: Constipation, Adult (DC), Hypothyroidism (Underactive Thyroid) ( DC) Forms: [employer] [facility] (Hungarian), General Discharge Instructions - POA Present On Arrival: None - Clinical Impression Clinical Impression: Constipation - Scribe Statement The provider has reviewed the documentation as recorded by the Scribe (Lelo Rosas) Provider Attestation: All medical record entries made by the Scribe were at my direction and personally dictated by me. I have reviewed the chart and agree that the record accurately reflects my personal performance of the history, physical exam, medical decision making, and the department course for this patient. I have also personally directed, reviewed, and agree with the discharge instructions and disposition.
[2018-06-30 13:18] VITALS: BP 130/81; PULSE 78; RESP 15
[2018-06-30 18:59] VITALS: O2SAT 96
== END 2018-06-30 13:17 | disposition home or self-care (01) ==
LOC: C.ER 11:36
DX: K59.00 Constipation, unspecified (principal); Z72.0 Tobacco use

== ENCOUNTER 2018-07-18 12:59 | Emergency (ER) | payer OTHER ==
[2018-07-18 13:00] VITALS: BMI 23.1
[2018-07-18 13:09] VITALS: TEMP 98.8
--- NOTE | 2018-07-18 13:58 | C.PDOC ---
History Of Present Illness 43 y/o male presents to the ED complaining of persistent constipation. Patient was seen 18 days ago for similar complaint and had x-ray showing significant stool. He was discharged on enemas, Metamucil, and Dulcolax. He reports taking the medications but is still not having regular/large bowel movements. Reports he is still compliant with methadone program. He feels the constipation has been worsening since starting methadone 5 weeks ago. Otherwise he denies any diarrhea, vomiting, fever, chills, weakness, numbness, urinary symptoms, or other complaints. Time Seen by Provider: 07/18/18 13:35 Chief Complaint (Nursing): GI Problem History Per: Patient History/Exam Limitations: no limitations Onset/Duration Of Symptoms: Days Current Symptoms Are (Timing): Worse Associated Symptoms: Constipation Past Medical History Reviewed: Historical Data, Nursing Documentation, Vital Signs Vital Signs: Last Vital Signs Temp 98.8 F 07/18/18 13:06 Pulse 56 L 07/18/18 15:23 Resp 18 07/18/18 15:23 BP 125/76 07/18/18 15:23 Pulse Ox 97 07/18/18 15:36 - Medical History PMH: Anxiety, Back Problems, Depression, Hyperthyroidism, Hypothyroidism, Post Traumatic Stress Disorder Denies: Diabetes, Hepatitis, HIV (Patient denied), HTN (Patient denied), Chronic Kidney Disease, Seizures (Patient denied), Sexually Transmitted Disease (Patient denied) - [facility] Procedures DETOXIFICATION SERVICES FOR SUBSTANCE ABUSE TREATMENT (04/18/17) GROUP PSYCHOTHERAPY (04/18/17) INDIV PSYCHOTHERAPY FOR SUBSTANCE ABUSE TREATMENT, SUPPORT (04/25/18) INDIV PSYCHOTHERAPY FOR SUBSTANCE ABUSE, COGNITIV BEHAVIORAL (04/18/17) INDIV PSYCHOTHERAPY FOR SUBSTANCE ABUSE, PSYCHOEDUCATION (04/25/18) INDIVIDUAL PSYCHOTHERAPY, COGNITIVE-BEHAVIORAL (04/25/18) INDIVIDUAL PSYCHOTHERAPY, SUPPORTIVE (04/25/18) Family History: States: Unknown Family Hx - Social History Hx Tobacco Use: Yes Hx Alcohol Use: No Hx Substance Use: No - Immunization History Hx Tetanus Toxoid Vaccination: Yes Hx Influenza Vaccination: Yes Hx Pneumococcal Vaccination: Yes Review Of Systems Except As Marked, All Systems Reviewed And Found Negative. Constitutional: Negative for: Fever, Chills, Sweats Cardiovascular: Negative for: Chest Pain Respiratory: Negative for: Shortness of Breath Gastrointestinal: Positive for: Abdominal Pain, Constipation. Negative for: Nausea, Vomiting, Diarrhea Genitourinary: Negative for: Dysuria, Frequency, Incontinence Neurological: Negative for: Weakness, Numbness, Dizziness Physical Exam - Physical Exam Appears: Well, Non-toxic, No Acute Distress Skin: Normal Color, Warm, Dry Head: Atraumatic, Normacephalic Eye(s): bilateral: Normal Inspection, PERRL, EOMI Oral Mucosa: Moist Neck: Normal ROM, Supple Chest: Symmetrical Cardiovascular: Rhythm Regular, No Murmur Respiratory: Normal Breath Sounds, No Rales, No Rhonchi, No Wheezing Gastrointestinal/Abdominal: Bowel Sounds (active), Soft, No Tenderness, Distention (mild) Back: Normal Inspection, No CVA Tenderness Extremity: Bilateral: Atraumatic, Normal Color And Temperature, Normal ROM Neurological/Psych: Oriented x3, Normal Speech, Normal Cranial Nerves Gait: Steady ED Course And Treatment - Laboratory Results Result Diagrams: 07/18/18 13:58 07/18/18 13:58 O2 Sat by Pulse Oximetry: 97 (RA) Pulse Ox Interpretation: Normal Medical Decision Making Medical Decision Making: Impression: 43 y/o male with constipation Initial Plan: --Blood work --CT Abd/Pelvis with IV contrast --Reassess and dispo CT abd/pelvis IMPRESSION: Mild retained feces. No evidence of bowel obstruction. No acute abnormality. Patient aware of the need to follow-up with GI Disposition - Disposition Referrals: Harry Keenan MD [Staff Provider] - Disposition: HOME/ ROUTINE Disposition Time: 15:31 Condition: GOOD Additional Instructions: You need to follow-up with GI for further evaluation and likely colonoscopy. Return to ED if condition worsens. Continue to eat fiber rich foods. Magnesium citrate as needed for constipation. Prescriptions: Magnesium Citrate [Citrate of Mag] 300 ml PO DAILY PRN #3 bottle PRN Reason: Constipation Instructions: Constipation in Adults, Methadone Forms: [facility] ([place] Island[place]) - Clinical Impression Clinical Impression: Anemia, Constipation, Elevated LFTs - Scribe Statement The provider has reviewed the documentation as recorded by the Scribe (Lelo Rosas) Provider Attestation: All medical record entries made by the Scribe were at my direction and personally dictated by me. I have reviewed the chart and agree that the record accurately reflects my personal performance of the history, physical exam, medical decision making, and the department course for this patient. I have also personally directed, reviewed, and agree with the discharge instructions and disposition.
[2018-07-18 14:04] LABS: BASO # 0.1 K/uL (0.0-0.2); BASO % 1.3 % (0.0-2.0); EOS # 0.2 K/uL (0.0-0.7); EOS % 3.5 % (0.0-4.0); HEMOGLOBIN 11.4 g/dL (12.0-18.0); LYMPH # 1.5 K/uL (1.0-4.3); LYMPH % 28.8 % (20.0-40.0); MEAN CORPUSCULAR HEMOGLOBIN 32.4 pg (27.0-31.0); MEAN CORPUSCULAR HGB CONC 35.3 g/dL (33.0-37.0); MEAN PLATELET VOLUME 6.8 fL (7.2-11.7); MONO # 0.4 K/uL (0.0-0.8); MONO % 7.6 % (0.0-10.0); NEUT # 3.1 K/uL (1.8-7.0); NEUT % 58.8 % (50.0-75.0); RBC 3.53 Mil/uL (4.40-5.90); RED CELL DISTRIBUTION WIDTH 13.3 % (11.5-14.5); WHITE BLOOD COUNT 5.2 K/uL (4.8-10.8)
[2018-07-18 14:07] LABS: MEAN CELL VOLUME 91.7 fL (80.0-94.0)
[2018-07-18 14:20] LABS: ALB/GLOB RATIO 1.4 (1.0-2.1); ALBUMIN 4.9 g/dL (3.5-5.0); ALT/SGPT 90 U/L (21-72); AST/SGOT 121 U/L (17-59); BLOOD UREA NITROGEN 16 mg/dL (9-20); CALCIUM 9.8 mg/dl (8.6-10.4); GFR NON-AFRICAN AMERICAN > 60; LIPASE 61 U/L (23-300)
[2018-07-18] MEDS ORDERED: Iodixanol 320 MG/ML 100 ML BOTTLE IV ONE (14:54)
[2018-07-18 15:24] VITALS: BP 125/76; PULSE 56; RESP 18
--- NOTE | 2018-07-18 15:31 | CT ---
Date of service: 07/18/2018 PROCEDURE: CT Abdomen and Pelvis with contrast HISTORY: persistent constipation COMPARISON: None. TECHNIQUE: Contrast dose: 100 mL Visipaque 320 Radiation dose: Total exam DLP = 357.46 mGy-cm. This CT exam was performed using one or more of the following dose reduction techniques: Automated exposure control, adjustment of the mA and/or kV according to patient size, and/or use of iterative reconstruction technique. FINDINGS: LOWER THORAX: Unremarkable. LIVER: Unremarkable. No gross lesion or ductal dilatation. GALLBLADDER AND BILE DUCTS: Unremarkable. PANCREAS: Unremarkable. No gross lesion or ductal dilatation. SPLEEN: Unremarkable. ADRENALS: Unremarkable. No mass. KIDNEYS AND URETERS: Unremarkable. No hydronephrosis. No solid mass. VASCULATURE: Unremarkable. No aortic aneurysm. BOWEL: Mild retained stool. No evidence bowel obstruction. No abnormal bowel loops. APPENDIX: Not identified. No secondary findings to suggest acute appendicitis. PERITONEUM: Unremarkable. No free fluid. No free air. LYMPH NODES: Unremarkable. No enlarged lymph nodes. BLADDER: Suboptimally distended. No gross abnormality. REPRODUCTIVE: Unremarkable prostate BONES: No acute fracture. OTHER FINDINGS: None. IMPRESSION: Mild retained feces. No evidence of bowel obstruction. No acute abnormality.
[2018-07-18 15:35] VITALS: O2SAT 97
== END 2018-07-18 16:01 | disposition home or self-care (01) ==
LOC: C.ER 12:59
DX: K59.00 Constipation, unspecified (principal); D64.9 Anemia, unspecified; R79.89 Other specified abnormal findings of blood chemistry
CPT/HCPCS: 74177; 80053; 83690; 85025; 99284; Q9967

== ENCOUNTER 2018-11-13 15:21 | Emergency (ER) | payer OTHER, MEDICAID ==
[2018-11-13 15:21] VITALS: BMI 23.1
--- NOTE | 2018-11-13 16:06 | C.PDOC ---
History Of Present Illness 43 years old male with PMHx of hypothyroidism, bipolar disorder, and depression presents to ED for complaints of bodyaches, vomiting, cough, abdominal pain, headache, and subjective fever that began 3 days ago. Denies taking any medications for relief. He also denies diarrhea, chest pain, dizziness, or any other complaints. Patient states positive sick contact(cousin) at home with the flu. Time Seen by Provider: 11/13/18 15:31 Chief Complaint (Nursing): Abdominal Pain History Per: Patient History/Exam Limitations: no limitations Onset/Duration Of Symptoms: Hrs Current Symptoms Are (Timing): Still Present Location Of Pain/Discomfort: Diffuse Radiation Of Pain To:: None Associated Symptoms: Fever, Vomiting. denies: Diarrhea Exacerbating Factors: None Alleviating Factors: None Last Bowel Movement: Today Recent travel outside of the [place]: No Past Medical History Reviewed: Historical Data, Nursing Documentation, Vital Signs Vital Signs: Last Vital Signs Temp 98.3 F 11/13/18 15:26 Pulse 68 11/13/18 15:26 Resp 18 11/13/18 15:26 BP 106/72 11/13/18 15:26 Pulse Ox 98 11/13/18 15:26 - Medical History PMH: Anxiety, Back Problems, Depression, Hyperthyroidism, Hypothyroidism, Post Traumatic Stress Disorder Denies: Diabetes, Chronic Kidney Disease - [facility] Procedures DETOXIFICATION SERVICES FOR SUBSTANCE ABUSE TREATMENT (04/18/17) GROUP PSYCHOTHERAPY (04/18/17) INDIV PSYCHOTHERAPY FOR SUBSTANCE ABUSE TREATMENT, SUPPORT (04/25/18) INDIV PSYCHOTHERAPY FOR SUBSTANCE ABUSE, COGNITIV BEHAVIORAL (04/18/17) INDIV PSYCHOTHERAPY FOR SUBSTANCE ABUSE, PSYCHOEDUCATION (04/25/18) INDIVIDUAL PSYCHOTHERAPY, COGNITIVE-BEHAVIORAL (04/25/18) INDIVIDUAL PSYCHOTHERAPY, SUPPORTIVE (04/25/18) Family History: States: Unknown Family Hx - Social History Hx Tobacco Use: Yes Hx Alcohol Use: No Hx Substance Use: Yes (Few days ago) - Immunization History Hx Tetanus Toxoid Vaccination: No Hx Influenza Vaccination: No Hx Pneumococcal Vaccination: No Review Of Systems Constitutional: Positive for: Fever, Malaise. Negative for: Chills Respiratory: Positive for: Cough Gastrointestinal: Positive for: Nausea, Vomiting, Abdominal Pain. Negative for: Diarrhea Skin: Negative for: Rash Neurological: Positive for: Headache. Negative for: Weakness, Numbness Physical Exam - Physical Exam Appears: Well, Non-toxic, No Acute Distress Skin: Normal Color, Warm, Dry, No Rash Head: Atraumatic, Normacephalic Eye(s): bilateral: Normal Inspection, PERRL, EOMI Oral Mucosa: Moist Throat: Normal, No Erythema, No Exudate, No Drooling, No Mass Neck: Normal ROM, Supple Chest: Symmetrical, No Tenderness Cardiovascular: Rhythm Regular, No Murmur Respiratory: Normal Breath Sounds, No Rales, No Rhonchi, No Wheezing Gastrointestinal/Abdominal: Normal Exam, Bowel Sounds (Active ), Soft, No Tenderness, No Distention, No Guarding, No Rebound Extremity: Normal ROM Extremity: Bilateral: Atraumatic, Normal Color And Temperature, Normal ROM Pulses: Left Radial: Normal, Right Radial: Normal Neurological/Psych: Oriented x3, Normal Speech Gait: Steady ED Course And Treatment O2 Sat by Pulse Oximetry: 98 (RA) Pulse Ox Interpretation: Normal Medical Decision Making Medical Decision Making: Plan: * Rapid Flu AB Swab Flu Swab is negative. On reeval, patient denies any complaint at this time. Agrees with d/c plan. Pt understands and agrees to immediately return to the ER if fevers, neck pain, HAs, n/v, or any other concerning, worsening, new or continued sxs. Otherwise, states will f/u with pcp in 1-2 days. Disposition Counseled Patient/Family Regarding: Studies Performed, Diagnosis, Need For Followup - Disposition Referrals: Maura Harrell APN [Advanced Practice Nurse] - Disposition: HOME/ ROUTINE Disposition Time: 16:43 Condition: STABLE Instructions: Viral Syndrome (DC) Forms: [facility] (Polish), General Discharge Instructions - POA Present On Arrival: None - Clinical Impression Clinical Impression: Viral syndrome - Scribe Statement The provider has reviewed the documentation as recorded by the Toneibkirk Schneider All medical record entries made by the Toneibe were at my direction and personally dictated by me. I have reviewed the chart and agree that the record accurately reflects my personal performance of the history, physical exam, medical decision making, and the department course for this patient. I have also personally directed, reviewed, and agree with the discharge instructions and disposition.
[2018-11-13 17:58] VITALS: BP 119/73; PULSE 51; RESP 15; TEMP 98.1; O2SAT 100
== END 2018-11-13 17:52 | disposition home or self-care (01) ==
LOC: C.ER 15:21
DX: B34.9 Viral infection, unspecified (principal); E03.9 Hypothyroidism, unspecified; Z72.0 Tobacco use

== ENCOUNTER 2018-11-22 20:10 | Emergency (ER) | payer OTHER, MEDICAID ==
[2018-11-22 20:10] VITALS: BMI 23.1
[2018-11-22 20:31] VITALS: RESP 16
--- NOTE | 2018-11-22 21:50 | C.PDOC ---
History Of Present Illness 43 year old male presents to the ER with a complaint of cough for the past few days associated with chest pain on inspiration and when coughing. Denies fever. Chief Complaint (Nursing): Cough, Cold, Congestion History Per: Patient History/Exam Limitations: no limitations Onset/Duration Of Symptoms: Days Current Symptoms Are (Timing): Still Present Location Of Pain: None Sick Contacts (Context): None Associated Symptoms: denies: Fever Recent travel outside of the [place]: No Past Medical History Reviewed: Historical Data, Nursing Documentation, Vital Signs Vital Signs: Last Vital Signs Temp 98.6 F 11/22/18 20:29 Pulse 72 11/22/18 20:29 Resp 16 11/22/18 20:29 BP 108/72 11/22/18 20:29 Pulse Ox 98 11/22/18 20:29 - Medical History PMH: Anxiety, Back Problems, Depression, Hyperthyroidism, Hypothyroidism, Post Traumatic Stress Disorder Denies: Diabetes, Hepatitis, HIV (Patient denied), HTN (Patient denied), Chronic Kidney Disease, Seizures (Patient denied), Sexually Transmitted Disease (Patient denied) - [facility] Procedures DETOXIFICATION SERVICES FOR SUBSTANCE ABUSE TREATMENT (04/18/17) GROUP PSYCHOTHERAPY (04/18/17) INDIV PSYCHOTHERAPY FOR SUBSTANCE ABUSE TREATMENT, SUPPORT (04/25/18) INDIV PSYCHOTHERAPY FOR SUBSTANCE ABUSE, COGNITIV BEHAVIORAL (04/18/17) INDIV PSYCHOTHERAPY FOR SUBSTANCE ABUSE, PSYCHOEDUCATION (04/25/18) INDIVIDUAL PSYCHOTHERAPY, COGNITIVE-BEHAVIORAL (04/25/18) INDIVIDUAL PSYCHOTHERAPY, SUPPORTIVE (04/25/18) Family History: States: Unknown Family Hx - Social History Hx Tobacco Use: Yes Hx Alcohol Use: No Hx Substance Use: Yes (DENIES) - Immunization History Hx Tetanus Toxoid Vaccination: No Hx Influenza Vaccination: No Hx Pneumococcal Vaccination: No Review Of Systems Constitutional: Negative for: Fever Cardiovascular: Positive for: Chest Pain Respiratory: Positive for: Cough Gastrointestinal: Negative for: Nausea, Vomiting Neurological: Negative for: Weakness, Numbness Physical Exam - Physical Exam Appears: Non-toxic, No Acute Distress Skin: Normal Color, Warm, Dry, No Diaphoretic Head: Atraumatic, Normacephalic Eye(s): bilateral: Normal Inspection Oral Mucosa: Moist Neck: Normal, Supple Chest: Symmetrical, No Tenderness Cardiovascular: Rhythm Regular Respiratory: No Rales, Rhonchi (Occasional), No Wheezing Gastrointestinal/Abdominal: Soft, No Tenderness Back: No CVA Tenderness Neurological/Psych: Oriented x3, Normal Speech ED Course And Treatment - Laboratory Results Result Diagrams: 11/22/18 22:41 11/22/18 22:41 ECG: Interpreted By Me, Viewed By Me ECG Rhythm: Sinus Bradycardia, 1st Degree HB, ST/T Changes, Nonspecific Changes ECG Interpretation: Abnormal Interpretation Of ECG: Sinus bradycardia with 1ST degree av block, non-spc ST-T chnges, polonged QT interval., abnormal tracings. Rate From EC O2 Sat by Pulse Oximetry: 98 (room air) Pulse Ox Interpretation: Normal Progress Note: Blood work, CXR, and EKG ordered. Disposition Counseled Patient/Family Regarding: Diagnosis - Disposition Referrals: [facility] at [facility] [Outside] Disposition: HOME/ ROUTINE Disposition Time: 23:30 Condition: STABLE Forms: [facility] (Greek) - POA Present On Arrival: None - Clinical Impression Clinical Impression: Bronchitis - Scribe Statement The provider has reviewed the documentation as recorded by the Scribe Carlton Patel All medical record entries made by the Scribe were at my direction and personally dictated by me. I have reviewed the chart and agree that the record accurately reflects my personal performance of the history, physical exam, medical decision making, and the department course for this patient. I have also personally directed, reviewed, and agree with the discharge instructions and disposition.
[2018-11-22 22:44] LABS: BASO # 0.1 K/uL (0.0-0.2); EOS # 0.2 K/uL (0.0-0.7); EOS % 2.8 % (0.0-4.0); HEMOGLOBIN 10.9 g/dL (12.0-18.0); LYMPH # 1.7 K/uL (1.0-4.3); LYMPH % 20.9 % (20.0-40.0); MEAN CELL VOLUME 91.6 fL (80.0-94.0); MEAN CORPUSCULAR HEMOGLOBIN 31.8 pg (27.0-31.0); MEAN CORPUSCULAR HGB CONC 34.8 g/dL (33.0-37.0); MEAN PLATELET VOLUME 7.2 fL (7.2-11.7); MONO # 0.7 K/uL (0.0-0.8); MONO % 8.8 % (0.0-10.0); NEUT # 5.4 K/uL (1.8-7.0); NEUT % 66.5 % (50.0-75.0); NRBC % 0.1 % (0.0-2.0); RBC 3.43 Mil/uL (4.40-5.90); RED CELL DISTRIBUTION WIDTH 13.7 % (11.5-14.5); WHITE BLOOD COUNT 8.1 K/uL (4.8-10.8)
[2018-11-22 23:00] LABS: ALB/GLOB RATIO 1.4 (1.0-2.1); ALBUMIN 4.4 g/dL (3.5-5.0); ALT/SGPT 43 U/L (21-72); AST/SGOT 54 U/L (17-59); BLOOD UREA NITROGEN 14 mg/dL (9-20); CALCIUM 8.6 mg/dl (8.6-10.4); GFR NON-AFRICAN AMERICAN > 60
[2018-11-23 02:46] VITALS: BP 104/60; PULSE 61; TEMP 97.4
--- NOTE | 2018-11-23 08:38 | RAD ---
Date of service: 11/22/2018 HISTORY: SOB COMPARISON: 10/23/2017 TECHNIQUE: Chest PA and lateral FINDINGS: LUNGS: No active pulmonary disease. PLEURA: No significant pleural effusion identified. No pneumothorax apparent. CARDIOVASCULAR: No aortic atherosclerotic calcification present. Normal cardiac size. No pulmonary vascular congestion. OSSEOUS STRUCTURES: No significant abnormalities. VISUALIZED UPPER ABDOMEN: Normal. OTHER FINDINGS: None. IMPRESSION: No active disease. No interval pathology noted.
[2018-11-23 13:24] VITALS: O2SAT 98
--- NOTE | 2018-11-23 23:16 | CARD ---
APPROVED REPORT Date of service: 11/22/2018 EKG Measurement Heart [id number] <Conclusion> Sinus bradycardia with 1st degree AV block Nonspecific T wave abnormality Prolonged QT Abnormal ECG
== END 2018-11-23 01:00 | disposition home or self-care (01) ==
LOC: C.ER 20:10
DX: J40 Bronchitis, not specified as acute or chronic (principal); Z87.891 Personal history of nicotine dependence

== ENCOUNTER 2018-11-25 19:39 | Emergency (ER) | payer MEDICAID, OTHER ==
[2018-11-25 19:39] VITALS: BMI 23.1
[2018-11-25 19:47] VITALS: BP 107/72; PULSE 100; RESP 18; TEMP 98.2; O2SAT 95
--- NOTE | 2018-11-25 20:20 | C.PDOC ---
History Of Present Illness Patient reports feeling "stressed out" for the past 10 months, but felt worse today. Denies SI/HI. He is on a methadone program, denies any other drug or EtOH use. Time Seen by Provider: 11/25/18 19:56 Chief Complaint (Nursing): Psychiatric Evaluation Past Medical History Reviewed: Historical Data, Nursing Documentation, Vital Signs Vital Signs: Last Vital Signs Temp 98.2 F 11/25/18 19:41 Pulse 100 H 11/25/18 19:41 Resp 18 11/25/18 19:41 BP 107/72 11/25/18 19:41 Pulse Ox 95 11/25/18 19:41 - Medical History PMH: Anxiety, Back Problems, Depression, Hyperthyroidism, Hypothyroidism, Post Traumatic Stress Disorder Denies: Diabetes, Hepatitis, HIV (Patient denied), HTN (Patient denied), Chronic Kidney Disease, Seizures (Patient denied), Sexually Transmitted Disease (Patient denied) - [facility] Procedures DETOXIFICATION SERVICES FOR SUBSTANCE ABUSE TREATMENT (04/18/17) GROUP PSYCHOTHERAPY (04/18/17) INDIV PSYCHOTHERAPY FOR SUBSTANCE ABUSE TREATMENT, SUPPORT (04/25/18) INDIV PSYCHOTHERAPY FOR SUBSTANCE ABUSE, COGNITIV BEHAVIORAL (04/18/17) INDIV PSYCHOTHERAPY FOR SUBSTANCE ABUSE, PSYCHOEDUCATION (04/25/18) INDIVIDUAL PSYCHOTHERAPY, COGNITIVE-BEHAVIORAL (04/25/18) INDIVIDUAL PSYCHOTHERAPY, SUPPORTIVE (04/25/18) Family History: States: Unknown Family Hx - Social History Hx Tobacco Use: Yes Hx Alcohol Use: No Hx Substance Use: Yes (DENIES) - Immunization History Hx Tetanus Toxoid Vaccination: No Hx Influenza Vaccination: No Hx Pneumococcal Vaccination: No Review Of Systems Except As Marked, All Systems Reviewed And Found Negative. Constitutional: Negative for: Fever Cardiovascular: Negative for: Chest Pain Respiratory: Negative for: Cough, Shortness of Breath Gastrointestinal: Negative for: Nausea, Vomiting, Abdominal Pain, Diarrhea Skin: Negative for: Rash Neurological: Negative for: Altered Mental Status Psych: Positive for: Anxiety, Depression. Negative for: Suicidal ideation Physical Exam - Physical Exam Appears: Non-toxic, No Acute Distress Skin: Normal Color, Warm, Dry Head: Atraumatic Eye(s): bilateral: Normal Inspection Oral Mucosa: Moist Chest: Symmetrical Cardiovascular: Rhythm Regular Respiratory: Normal Breath Sounds Gastrointestinal/Abdominal: Normal Exam Extremity: Normal ROM Neurological/Psych: Oriented x3 Gait: Steady ED Course And Treatment O2 Sat by Pulse Oximetry: 95 Medical Decision Making Medical Decision Making: Patient evaluated by crisis, he has no SI/HI and can be referred for outpatient followup. Disposition - Disposition Disposition: HOME/ ROUTINE Disposition Time: 20:23 Condition: STABLE - Clinical Impression Clinical Impression: Depression, Anxiety
== END 2018-11-25 20:46 | disposition left against medical advice (07) ==
LOC: C.ER 19:39
DX: F32.9 Major depressive disorder, single episode, unspecified (principal); F41.9 Anxiety disorder, unspecified

== ENCOUNTER 2018-12-11 17:25 | Emergency (ER) | payer MEDICAID, OTHER ==
[2018-12-11 17:26] VITALS: BMI 23.1
[2018-12-11] MEDS ORDERED: Sodium Chloride 0.9% 1,000 ML IV ONE (17:44)
[2018-12-11] MEDS ORDERED: Sodium Chloride 0.9% 1,000 ML ONE (17:55)
[2018-12-11 17:56] LABS: BASO # 0.1 K/uL (0.0-0.2); BASO % 0.9 % (0.0-2.0); EOS # 0.1 K/uL (0.0-0.7); EOS % 1.1 % (0.0-4.0); HEMOGLOBIN 11.9 g/dL (12.0-18.0); LYMPH % 12.7 % (20.0-40.0); MEAN CELL VOLUME 92.5 fL (80.0-94.0); MEAN CORPUSCULAR HEMOGLOBIN 31.4 pg (27.0-31.0); MEAN CORPUSCULAR HGB CONC 33.9 g/dL (33.0-37.0); MEAN PLATELET VOLUME 7.3 fL (7.2-11.7); MONO # 0.5 K/uL (0.0-0.8); MONO % 6.7 % (0.0-10.0); NEUT # 6.1 K/uL (1.8-7.0); NEUT % 78.6 % (50.0-75.0); RBC 3.8 Mil/uL (4.40-5.90); RED CELL DISTRIBUTION WIDTH 14.1 % (11.5-14.5); WHITE BLOOD COUNT 7.8 K/uL (4.8-10.8)
--- NOTE | 2018-12-11 18:18 | C.PDOC ---
History Of Present Illness 43 y/o male, w/PMhx of hyperthyroidism, presents to the ER complaining of bilateral lower abdominal pain and nausea which began today. Patient states that he also has decreased appetite for the past 3 days. Patient is also complaining of intermittent sternal sharp chest pain that occurs few times a day for months. He notes that the episodes last for about 20 minutes and can occur at rest or with exertion. He notes that he was evaluated by his PMD, . He is in methadone program. Currently, he denies having fever, chills, CP, SOB, and vomiting. Time Seen by Provider: 12/11/18 17:43 Chief Complaint (Nursing): GI Problem History Per: Patient History/Exam Limitations: no limitations Onset/Duration Of Symptoms: Days Current Symptoms Are (Timing): Still Present Severity: Moderate Past Medical History Reviewed: Historical Data, Nursing Documentation, Vital Signs Vital Signs: Last Vital Signs Temp 97.7 F 12/11/18 17:28 Pulse 90 12/11/18 17:28 Resp 16 12/11/18 17:28 BP 128/79 12/11/18 17:28 Pulse Ox 99 12/11/18 17:28 - Medical History PMH: Anxiety, Back Problems, Depression, Hyperthyroidism, Hypothyroidism, Post Traumatic Stress Disorder Denies: Diabetes, Hepatitis, HIV (Patient denied), HTN (Patient denied), Chronic Kidney Disease, Seizures (Patient denied), Sexually Transmitted Disease (Patient denied) Other Surgeries: Hx of surgeries - [facility] DETOXIFICATION SERVICES FOR SUBSTANCE ABUSE TREATMENT (04/18/17) GROUP PSYCHOTHERAPY (04/18/17) INDIV PSYCHOTHERAPY FOR SUBSTANCE ABUSE TREATMENT, SUPPORT (04/25/18) INDIV PSYCHOTHERAPY FOR SUBSTANCE ABUSE, COGNITIV BEHAVIORAL (04/18/17) INDIV PSYCHOTHERAPY FOR SUBSTANCE ABUSE, PSYCHOEDUCATION (04/25/18) INDIVIDUAL PSYCHOTHERAPY, COGNITIVE-BEHAVIORAL (04/25/18) INDIVIDUAL PSYCHOTHERAPY, SUPPORTIVE (04/25/18) Family History: States: No Known Family Hx - Social History Hx Tobacco Use: Yes Hx Alcohol Use: No Hx Substance Use: Yes (methadone) - Immunization History Hx Tetanus Toxoid Vaccination: No Hx Influenza Vaccination: No Hx Pneumococcal Vaccination: No Review Of Systems Constitutional: Negative for: Fever, Chills Cardiovascular: Positive for: Chest Pain (currently resolved) Respiratory: Negative for: Shortness of Breath Gastrointestinal: Positive for: Nausea, Abdominal Pain. Negative for: Vomiting Physical Exam - Physical Exam Appears: Non-toxic, No Acute Distress Skin: Normal Color, Warm, Dry Head: Atraumatic, Normacephalic Eye(s): bilateral: Normal Inspection Neck: Supple Chest: Symmetrical Cardiovascular: Rhythm Regular Respiratory: Normal Breath Sounds, No Rales, No Rhonchi, No Wheezing Gastrointestinal/Abdominal: Bowel Sounds (positive bowel sounds), Soft, Tenderness (mild suprapubic tenderness), No Guarding, No Rebound Neurological/Psych: Oriented x3, Normal Speech, Normal Cognition ED Course And Treatment - Laboratory Results Result Diagrams: 12/11/18 17:51 12/11/18 17:51 ECG Rhythm: Sinus Bradycardia, R BBB (incomplete ) Interpretation Of ECrst degree AV Block O2 Sat by Pulse Oximetry: 99 (RA) Pulse Ox Interpretation: Normal Medical Decision Making Medical Decision Making: Plan: --Labs --EKG --UA --Pepcid IV --Zofran IV --IV Fluids 1909 pt feeling better,. no longer nauseous. abodmen soft, nd. nt on re-exam. pt with no acute changes in ekg, trop neg. will d/c with referral to pmd and cardiology. Disposition Counseled Patient/Family Regarding: Studies Performed, Diagnosis, Need For Followup, Rx Given - Disposition Referrals: Maura Harrell APN [Advanced Practice Nurse] - Gonzales Maloney MD [Staff Provider] - Disposition: HOME/ ROUTINE Disposition Time: 19:10 Condition: IMPROVED Additional Instructions: Stay well hydrated. Take ondansetron before meals if needed for nausea. Follow up with Dr Harrell in 1-2 days. Return to ER for any worse pain, vomiting, chest pain, or any other concerns. Prescriptions: Ondansetron ODT [Zofran ODT] 4 mg PO TID #12 odt Instructions: Hypokalemia (DC), Nausea and Vomiting, Adult (DC) Forms: [facility] ([place]), General Discharge Instructions - Clinical Impression Clinical Impression: Hypokalemia, Nausea and vomiting in adult - PA / RASCHEL KNITTING MACHINE OPERATOR / Resident Statement MD/DO has reviewed & agrees with the documentation as recorded. - Scribe Statement The provider has reviewed the documentation as recorded by the Vic Kemp Provider Attestation All medical record entries made by the Scribe were at my direction and personally dictated by me. I have reviewed the chart and agree that the record accurately reflects my personal performance of the history, physical exam, medical decision making, and the department course for this patient. I have also personally directed, reviewed, and agree with the discharge instructions and disposition.
[2018-12-11 18:35] LABS: ALB/GLOB RATIO 1.5 (1.0-2.1); ALBUMIN 5.2 g/dL (3.5-5.0); ALT/SGPT 42 U/L (21-72); AST/SGOT 62 U/L (17-59); BLOOD UREA NITROGEN 18 mg/dL (9-20); CALCIUM 8.8 mg/dl (8.6-10.4); GFR NON-AFRICAN AMERICAN > 60; LIPASE 45 U/L (23-300)
[2018-12-11] MEDS ORDERED: Potassium Chloride 20 mEq ER Tab PO STA (19:13)
[2018-12-11] MEDS ORDERED: Potassium Chloride 20 mEq ER Tab PO ONE (19:26)
[2018-12-11 19:39] LABS: URINE BILIRUBIN NEGATIVE (NEGATIVE); URINE BLOOD NEGATIVE (NEGATIVE); URINE CLARITY Clear (Clear); URINE COLOR Yellow (YELLOW); URINE GLUCOSE (UA) NORMAL (Normal); URINE LEUKOCYTE ESTERASE TRACE Leu/uL (Negative); URINE PROTEIN NEGATIVE (NEGATIVE); URINE UROBILINOGEN NORMAL mg/dL (0.2-1.0)
[2018-12-11 19:44] VITALS: BP 112/74; PULSE 60; RESP 18; TEMP 97.9
[2018-12-11 20:00] LABS: BARBITURATES, UR NEGATIVE (NEGATIVE); BENZODIAZEPINES, UR NEGATIVE (NEGATIVE); OPIATES, UR NEGATIVE (NEGATIVE); PHENCYCLIDINE, UR NEGATIVE (NEGATIVE)
[2018-12-14 03:26] VITALS: O2SAT 99
== END 2018-12-11 19:45 | disposition home or self-care (01) ==
LOC: C.ER 17:25
DX: R11.2 Nausea with vomiting, unspecified (principal); E87.6 Hypokalemia
CPT/HCPCS: 80053; 80324; 80345; 80346; 80349; 80353; 80358; 80361; 81001; 83690; 83992; 84484; 85025; 96361; 96374; 96375; 99285; J2405; J7030

== ENCOUNTER 2019-02-10 18:23 | Emergency (ER) | payer MEDICAID, OTHER ==
[2019-02-10 18:23] VITALS: BMI 23.1
[2019-02-10 18:29] VITALS: BP 121/74; PULSE 54; RESP 17; TEMP 97.7; O2SAT 97
--- NOTE | 2019-02-10 18:40 | C.PDOC ---
History Of Present Illness 43 y/o male hx of anxiety, depression, hyperthyroidism, PTSD and methadone c/o intermittent chest pain for 11 months and intermittent epigastric pain. Pt was seen by winter intern with negative workups. Pt notes of recurring left-sided chest pain that is throbbing and sharp. Pt also has increase belching. Pt denies nausea, vomiting, lower abdominal pain, constipation, urinary complaints and diarrhea today. Time Seen by Provider: 02/10/19 18:40 Chief Complaint (Nursing): Abdominal Pain History Per: Patient History/Exam Limitations: no limitations Onset/Duration Of Symptoms: Days (months ) Current Symptoms Are (Timing): Still Present Past Medical History Reviewed: Historical Data, Nursing Documentation, Vital Signs Vital Signs: Last Vital Signs Temp 97.7 F 02/10/19 18:26 Pulse 54 L 02/10/19 18:26 Resp 17 02/10/19 18:26 BP 121/74 02/10/19 18:26 Pulse Ox 97 02/10/19 18:26 - Medical History PMH: Anxiety, Back Problems, Depression, Hyperthyroidism, Hypothyroidism, Post Traumatic Stress Disorder - [facility] DETOXIFICATION SERVICES FOR SUBSTANCE ABUSE TREATMENT (04/18/17) GROUP PSYCHOTHERAPY (04/18/17) INDIV PSYCHOTHERAPY FOR SUBSTANCE ABUSE TREATMENT, SUPPORT (04/25/18) INDIV PSYCHOTHERAPY FOR SUBSTANCE ABUSE, COGNITIV BEHAVIORAL (04/18/17) INDIV PSYCHOTHERAPY FOR SUBSTANCE ABUSE, PSYCHOEDUCATION (04/25/18) INDIVIDUAL PSYCHOTHERAPY, COGNITIVE-BEHAVIORAL (04/25/18) INDIVIDUAL PSYCHOTHERAPY, SUPPORTIVE (04/25/18) Family History: States: Unknown Family Hx - Social History Hx Tobacco Use: Yes Hx Alcohol Use: No Hx Substance Use: No (METHADONE PROGRAM) - Immunization History Hx Tetanus Toxoid Vaccination: No Hx Influenza Vaccination: No Hx Pneumococcal Vaccination: No Review Of Systems Cardiovascular: Positive for: Chest Pain (left-sided) Gastrointestinal: Positive for: Abdominal Pain (epigastric; no lower abdominal pain ). Negative for: Nausea, Vomiting, Diarrhea, Constipation Genitourinary: Negative for: Dysuria, Frequency, Incontinence, Hematuria Physical Exam - Physical Exam Appears: Non-toxic, No Acute Distress Skin: Warm, Dry Head: Normacephalic Eye(s): bilateral: Normal Inspection, PERRL, EOMI Oral Mucosa: Moist Neck: Trachea Midline, Supple, No Other (no meningeal signs-negative kernig's and brudzinski's) Chest: Symmetrical, Tenderness (reproducible pain on palpation on left side) Cardiovascular: Rhythm Regular, No Friction Rub Respiratory: No Rales, No Rhonchi, No Wheezing Gastrointestinal/Abdominal: Soft, No Tenderness, No Distention Extremity: Bilateral: Normal Color And Temperature Pulses: Left Dorsalis Pedis: Normal (2+), Right Dorsalis Pedis: Normal (2+) Neurological/Psych: Oriented x3 Gait: Steady ED Course And Treatment - Laboratory Results Result Diagrams: 02/10/19 20:30 02/10/19 20:30 O2 Sat by Pulse Oximetry: 97 (RA) Pulse Ox Interpretation: Normal Medical Decision Making Medical Decision Making: Impression: 43 y/o male hx of anxiety, depression, hyperthyroidism, PTSD and met hadone c/o intermittent chest pain for 11 months and intermittent epigastric pain. Long standing abdominal and chest pain, likely chronic gerd w/ chronic chest wall pain given being seen by many ERs per patient and winter intern which pt does not remember name of. Abdomen non-ttp on exam. heart score: Age: 0 RF: 0 Story: 0 EK trop: pending Low pretest wells: PERCd out EK, sinus radha, no stemi EKG largely unchanged from previous plans: -- chem labs -- blood work -- EKG -- CXR -- maalox -- pepcid -- IV fluids 2030 repeat abdomen non-ttp pt notes pain fully resolved 2101 labs, imaging unremarkable clear for d/c home with return indications and f/u. Pt eloped prior to d/c papers and endorsement to followup being given to pt. Disposition - Disposition Referrals: Karli Montgomery MD [Medical Doctor] - [facility] [Outside] [facility] [Outside] [facility] [Outside] Ruiz Siddiqui MD [Staff Provider] - Disposition: HOME/ ROUTINE Disposition Time: 21:46 Condition: GOOD Additional Instructions: USHA PEREZ, thank you for letting us take care of you today. Your provider was Alonso Storey and you were treated for NAUSEA,VOMITTING,WEAKNESS. The emergency medical care you received today was directed at your acute symptoms. If you were prescribed any medication, please fill it and take as directed. It may take several days for your symptoms to resolve. Return to the Emergency Department if your symptoms worsen, do not improve, or if you have any other problems. Please contact your doctor or call one of the physicians/clinics you have been referred to that are listed on the Patient Visit Information form that is included in your discharge packet. Bring any paperwork you were given at discharge with you along with any medications you are taking to your follow up visit. Our treatment cannot replace ongoing medical care by a primary care provider outside of the emergency department. Thank you for allowing the [facility] team to be part of your care today. If you had an X-Ray or CT scan: A Radiologist will review the ED reading if any change in treatment is needed we will contact you. If you had a blood, urine, or wound culture: It will take several days for the results, if any change in treatment is needed we will contact you. If you had an STI test: It will take 48 hours for the results. Please call after 1 week if you have not heard back. Prescriptions: Famotidine [Pepcid] 20 mg PO BID PRN 3 Days #6 tab PRN Reason: Dyspepsia Instructions: Chest Pain That Is Not Caused by the Heart (DC), Acid Reflux (Gastroesophageal Reflux Disease), Adult (DC), Chest Pain (DC) Forms: [facility] (Samoan) - Clinical Impression Clinical Impression: Chest pain, GERD (gastroesophageal reflux disease) - Scribe Statement The provider has reviewed the documentation as recorded by the Scribe Bozena Do Provider Attestation: All medical record entries made by the Scribe were at my direction and personally dictated by me. I have reviewed the chart and agree that the record accurately reflects my personal performance of the history, physical exam, medical decision making, and the department course for this patient. I have also personally directed, reviewed, and agree with the discharge instructions and disposition.
[2019-02-10] MEDS ORDERED: Alum-Mag Hydrox-Simethicone Susp (30 mL) PO ONE (18:58)
[2019-02-10] MEDS ORDERED: Sodium Chloride 0.9% 1,000 ML IV SCH (19:00)
[2019-02-10] MEDS ORDERED: Aluminum Hydroxide/Magnesium Hydroxide Susp (30 mL) ONE (20:26)
[2019-02-10] MEDS ORDERED: Sodium Chloride 0.9% 1,000 ML ONE (20:26)
[2019-02-10 20:35] LABS: BASO # 0.1 K/uL (0.0-0.2); BASO % 1.2 % (0.0-2.0); EOS # 0.3 K/uL (0.0-0.7); EOS % 3.9 % (0.0-4.0); LYMPH # 1.4 K/uL (1.0-4.3); LYMPH % 20.5 % (20.0-40.0); MEAN CELL VOLUME 94.9 fL (80.0-94.0); MEAN CORPUSCULAR HEMOGLOBIN 31.4 pg (27.0-31.0); MEAN CORPUSCULAR HGB CONC 33.1 g/dL (33.0-37.0); MEAN PLATELET VOLUME 7.2 fL (7.2-11.7); MONO # 0.7 K/uL (0.0-0.8); MONO % 9.7 % (0.0-10.0); NEUT # 4.4 K/uL (1.8-7.0); NEUT % 64.7 % (50.0-75.0); RBC 4.13 Mil/uL (4.40-5.90); RED CELL DISTRIBUTION WIDTH 14.2 % (11.5-14.5); WHITE BLOOD COUNT 6.8 K/uL (4.8-10.8)
[2019-02-10 20:48] LABS: ALB/GLOB RATIO 1.4 (1.0-2.1); ALBUMIN 4.9 g/dL (3.5-5.0); ALT/SGPT 25 U/L (21-72); AST/SGOT 60 U/L (17-59); BLOOD UREA NITROGEN 14 mg/dL (9-20); CALCIUM 10.1 mg/dl (8.6-10.4); GFR NON-AFRICAN AMERICAN > 60; LIPASE 48 U/L (23-300)
--- NOTE | 2019-02-11 14:51 | RAD ---
Date of service: 02/10/2019 HISTORY: Chest pain COMPARISON: Comparison made with chest radiograph dated 11/22/2018 TECHNIQUE: Chest PA and lateral views FINDINGS: LUNGS: No active pulmonary disease. PLEURA: No significant pleural effusion identified. No pneumothorax apparent. CARDIOVASCULAR: No aortic atherosclerotic calcification present. Cardiomegaly. Normal cardiac size. No pulmonary vascular congestion. OSSEOUS STRUCTURES: No significant abnormalities. VISUALIZED UPPER ABDOMEN: Normal. OTHER FINDINGS: None. IMPRESSION: Cardiomegaly. No acute infiltrates
--- NOTE | 2019-02-13 01:38 | CARD ---
APPROVED REPORT Date of service: 02/10/2019 EKG Measurement Heart [id number] <Conclusion> Sinus bradycardia with 1st degree AV block Incomplete right bundle branch block Nonspecific T wave abnormality Abnormal ECG
== END 2019-02-10 22:28 | disposition home or self-care (01) ==
LOC: C.ER 18:23
DX: R07.9 Chest pain, unspecified (principal); K21.9 Gastro-esophageal reflux disease without esophagitis
CPT/HCPCS: 71046; 80053; 83690; 84484; 85025; 93005; 96374; 99283; J7030